=== PATIENT | female | born 1940 | race Caucasian/White ===

== ENCOUNTER 2017-06-02 08:29 | Emergency (ER) | payer MEDICARE ==
[~2017-06-02] VITALS: Ht 152.4 cm; Wt 59.0 kg
[2017-06-02] MEDS ORDERED: NS IV 1000 ML 1,000 ML ONE (08:33)
[2017-06-02] MEDS ORDERED: NS IV 1000 ML 1,000 ML IV ONE (08:37)
--- OUTSIDE RECORDS SUMMARY | 2017-06-02 08:37 | XMS REPORT | Clinical Summary ---
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 Estefania Wade Mixed conductive and sensorineural hearing loss Medication List Medication Instructions Start Date Stop Date Generic Name NDC Status Provider Patient Instruction CO Q 10 CAPS 1 PO DAILY COENZYME Q10 CAPS 63720690499 Active Estefania Wade ASPIRIN 81 MG TAB 1 PO daily ASPIRIN 57158344776 Active Estefania Wade OMEPRAZOLE 20 MG CPDR 1 PO daily OMEPRAZOLE 13993562769 Active Estefania Wade PRAVASTATIN SODIUM 40 MG TABS 1 PO DAILY PRAVASTATIN SODIUM 14030765142 Active Estefania Wade HYDROCHLOROTHIAZIDE 12.5 MG CAPS 1 PO QD HYDROCHLOROTHIAZIDE 77749452667 Active Estefania Wade Vital Signs Date Name Value Unit Range Description blood pressure, diastolic - 8462-4 90 mm[Hg] BP pablo blood pressure, systolic - 8480-6 155 mm[Hg] BP sys height E&M - 8302-2 61 [in_us] Bdy height pulse rate E&M - 8867-4 90 /min Heart rate respiratory rate E&M - 9279-1 14 /min Resp rate temperature E&M 98.6 [degF] Body temperature weight E&M - 3141-9 140 [lb_av] Weight Measured Procedures Code Procedure Name Date Entry Date Standard Description CPT-G0439 Medicare Annual Wellness Visit 16:46:31 CDT
--- OUTSIDE RECORDS SUMMARY | 2017-06-02 08:37 | XMS REPORT ---
Author JEEVAN Boykin [facility] eClinicalWorks Address Unknown Phone Unavailable Care Team Providers Care Package Drier Name Role Phone JEEVAN MENCHACA CP Unavailable Allergies No Known Allergies Problems Problem Type Condition Code Onset Dates Condition Status Assessment Encounter for immunization Z23 Active Medications No Known Medications Procedures Procedure Coding System Code Date SINGLE IMMUNIZATION ADMIN CPT-4 59849 Dec 29, 2014 FLUARIX QUAD (3 & UP)-GSK-2014 CPT-4 99472 Dec 29, 2014 Results No Known Results Immunizations Vaccine Administration Date FLUARIX QUAD (3 & UP)-GSK-2014Dec 29, 2014 Summary Purpose eClinicalWorks Submission
--- OUTSIDE RECORDS SUMMARY | 2017-06-02 08:37 | XMS REPORT | Clinical Summary ---
Author Author User, [place] Organization Estefania Wade DO, FACP Address Unknown [...] CAPS 1 PO DAILY COENZYME Q10 CAPS 37377154224 Active Estefania Wade ASPIRIN 81 MG TAB 1 PO daily ASPIRIN 01157264426 Active Estefania Wade OMEPRAZOLE 20 MG CPDR 1 PO daily OMEPRAZOLE 46152746693 Active Estefania Wade PRAVASTATIN SODIUM 40 MG TABS 1 PO DAILY PRAVASTATIN SODIUM 27212436485 Active Estefania Wade HYDROCHLOROTHIAZIDE 12.5 MG CAPS 1 PO QD HYDROCHLOROTHIAZIDE 64498961412 Active Estefania Wade Vital Signs Date Name [...]
--- OUTSIDE RECORDS SUMMARY | 2017-06-02 08:37 | XMS REPORT | Clinical Summary ---
Author Author User, [place] Organization Estefania Wade DO, FACP Address Unknown [...] CAPS 1 PO DAILY COENZYME Q10 CAPS 49969638716 Active Estefania Wade ASPIRIN 81 MG TAB 1 PO daily ASPIRIN 99527378510 Active Estefania Wade OMEPRAZOLE 20 MG CPDR 1 PO daily OMEPRAZOLE 89738238599 Active Estefania Wade PRAVASTATIN SODIUM 40 MG TABS 1 PO DAILY PRAVASTATIN SODIUM 81820647388 Active Estefania Wade HYDROCHLOROTHIAZIDE 12.5 MG CAPS 1 PO QD HYDROCHLOROTHIAZIDE 77196251053 Active Estefania Wade Vital Signs Date Name [...]
[2017-06-02 08:49] LABS: BASOPHILS % (AUTO) 0 % (0-10); EOSINOPHILS % (AUTO) 0 % (0-10); HEMATOCRIT 42 % (35-52); LYMPHOCYTES # (AUTO) 2.8 X 10^3 (1.0-4.0); LYMPHOCYTES % (AUTO) 21 % (12-44); MEAN CORPUSCULAR HEMOGLOBIN 31 PG (25-34); MEAN CORPUSCULAR HGB CONC 36 G/DL (32-36); MEAN CORPUSCULAR VOLUME 86 FL (80-99); MEAN PLATELET VOLUME 9.1 FL (7.4-10.4); MONOCYTES # (AUTO) 1.9 X 10^3 (0.0-1.0); MONOCYTES % (AUTO) 14 % (0-12); NEUTROPHILS # (AUTO) 8.7 X 10^3 (1.8-7.8); NEUTROPHILS % (AUTO) 65 % (42-75); PLATELET COUNT 510 10^3/uL (130-400); RED BLOOD COUNT 4.86 10^6/uL (4.35-5.85); WHITE BLOOD COUNT 13.4 10^3/uL (4.3-11.0)
[2017-06-02 09:12] LABS: ALANINE AMINOTRANSFERASE 16 U/L (0-55); ALBUMIN 4.7 GM/DL (3.2-4.5); ALKALINE PHOSPHATASE 112 U/L (40-136); BILIRUBIN,TOTAL 0.7 MG/DL (0.1-1.0); BUN/CREATININE RATIO 9; CALCIUM 10.5 MG/DL (8.5-10.1); CARBON DIOXIDE 27 MMOL/L (21-32); CHLORIDE 96 MMOL/L (98-107); CREATININE SERUM 0.82 MG/DL (0.60-1.30); GFR ESTIMATED > 60; GLUCOSE 121 MG/DL (70-105); MAGNESIUM 2.3 MG/DL (1.8-2.4); POTASSIUM 3.5 MMOL/L (3.6-5.0); SODIUM 134 MMOL/L (135-145)
--- NOTE | 2017-06-02 09:17 | Diagnostic Imaging Report ---
INDICATION: Tachycardia. COMPARISON: None available. FINDINGS: Lungs are clear. No pleural effusion or pneumothorax. Heart is normal in size. Moderate-sized hiatus hernia. Mineralized bodies in the subcoracoid space are likely due to degenerative changes in the glenohumeral joint. IMPRESSION: 1. No acute cardiopulmonary process. 2. Moderate-sized hiatus hernia. Dictated by: Dictated on workstation # [id number]
[2017-06-02] MEDS ORDERED: PRD10T (09:32)
[2017-06-02] MEDS ORDERED: LOSA50TA36 PO (09:32)
[2017-06-02] MEDS ORDERED: HYDR12.5 PO (09:32)
[2017-06-02] MEDS ORDERED: PRAV40TA2 PO (09:32)
[2017-06-02] MEDS ORDERED: CLAR-19 (09:32)
--- NOTE | 2017-06-02 09:32 | ED General ---
General Chief Complaint: Cardiac/General Problems Stated Complaint: CONGESTION,BP ISSUES,HEART RACING,CARR Nursing Triage Note: PT AMBULATED TO RM 7 W/O DIFFICULTIES. PT COMPLAINS OF RACING HEART AND JUST "NOT FEELING WELL". PT SYMPTOMS BEGAN ON OR BEFORE 05/28/17 WHEN SHE WENT TO THE DR AND WAS PRESCRIBED CLARITHROMYCIN 500 MG 1 EVERY 12 HRS AND PREDNISONE 10MG 1 TWICE A DAY. Nursing Sepsis Screen: No Definite Risk Source of Information: Patient Exam Limitations: No Limitations History of Present Illness Date Seen by Provider: Jun 02, 2017 Time Seen by Provider: 08:32 Initial Comments This pleasant 76-year-old woman presents to the emergency room with complaints of feeling ill for about 2 weeks. She had difficulty sleeping last night because of pounding head and pounding heart. She has been experiencing head congestion. She saw Dr. Mota last and was started on clarithromycin and prednisone but symptoms worsened despite treatment. She is afebrile at present but noted to have significant sinus tachycardia on the monitor. She has had no significant cough and denies chest pain. She does have a "fullness" in her chest. Allergies and Home Medications Allergies Coded Allergies: Penicillins (Verified Allergy, Severe, RASH, 06/02/17) Patient Home Medication List Home Medication List Reviewed: Yes Review of Systems Constitutional: malaise EENTM: see HPI Respiratory: see HPI Cardiovascular: see HPI Gastrointestinal: no symptoms reported Genitourinary: no symptoms reported Musculoskeletal: no symptoms reported Skin: no symptoms reported Psychiatric/Neurological: See HPI Hematologic/Lymphatic: No Symptoms Reported Immunological/Allergic: no symptoms reported Past Aodpwrf-Xbrnqv-Nwvirv Hx Patient Social History Recent Foreign Travel: No Contact w/Someone Who Travel: No Recent Infectious Disease Expo: No Past Medical History Surgeries: Yes Abdominal (bowel obstruction) Respiratory: No Cardiac: Yes High Cholesterol, Hypertension Neurological: No : No Genitourinary: No Gastrointestinal: Yes (history of bowel obstruction) Musculoskeletal: No Endocrine: No HEENT: Yes Hearing Impairment: Hard of Hearing, Hearing Aide Right, Hearing Aide Left Cancer: No Psychosocial: No Physical Exam Vital Signs Vital Signs - First Documented 06/02/17 08:30 Temp 98.5 Pulse 155 Resp 14 B/P (MAP) 190/96 (127) O2 Delivery Room Air Capillary Refill : Less Than 3 Seconds General Appearance: No Apparent Distress, Thin HEENT: PERRL/EOMI, Normal ENT Inspection, Pharynx Normal Neck: Normal Inspection Respiratory: Lungs Clear, Normal Breath Sounds, No Accessory Muscle Use, No Respiratory Distress Cardiovascular: No Edema, No Murmur, Tachycardia Gastrointestinal: Normal Bowel Sounds, Non Tender, Soft Extremity: Normal Inspection, No Pedal Edema Neurologic/Psychiatric: Alert, Oriented x3, No Motor/Sensory Deficits, Normal 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, 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 Norm as Tested Skin: Normal Color, Warm/Dry Progress/Results/Core Measures Suspected Sepsis Recent Fever Within 48 Hours: No Infection Criteria Present: None New/Unexplained Altered Menta: No Sepsis Screen: No Definite Risk Sepsis Diagnosis: SIRS Temperature:98.5 Pulse: 155 Respiratory Rate: 14 Laboratory Tests 06/02/17 08:35: White Blood Count 13.4H Blood Pressure 190 /96 Mean: 127 Laboratory Tests 06/02/17 08:35: Creatinine 0.82, Platelet Count 510H, Total Bilirubin 0.7 Results/Orders Lab Results Laboratory Tests Test 06/02/17 08:35 Range/Units White Blood Count 13.4 H 4.3-11.0 10^3/uL Red Blood Count 4.86 4.35-5.85 10^6/uL Hemoglobin 15.0 11.5-16.0 G/DL Hematocrit 42 35-52 % Mean Corpuscular Volume 86 80-99 FL Mean Corpuscular Hemoglobin 31 25-34 PG Mean Corpuscular Hemoglobin Concent 36 32-36 G/DL Red Cell Distribution Width 13.0 10.0-14.5 % Platelet Count 510 H 130-400 10^3/uL Mean Platelet Volume 9.1 7.4-10.4 FL Neutrophils (%) (Auto) 65 42-75 % Lymphocytes (%) (Auto) 21 12-44 % Monocytes (%) (Auto) 14 H 0-12 % Eosinophils (%) (Auto) 0 0-10 % Basophils (%) (Auto) 0 0-10 % Neutrophils # (Auto) 8.7 H 1.8-7.8 X 10^3 Lymphocytes # (Auto) 2.8 1.0-4.0 X 10^3 Monocytes # (Auto) 1.9 H 0.0-1.0 X 10^3 Eosinophils # (Auto) 0.0 0.0-0.3 10^3/uL Basophils # (Auto) 0.0 0.0-0.1 10^3/uL Sodium Level 134 L 135-145 MMOL/L Potassium Level 3.5 L 3.6-5.0 MMOL/L Chloride Level 96 L 98-107 MMOL/L Carbon Dioxide Level 27 21-32 MMOL/L Anion Gap 11 5-14 MMOL/L Blood Urea Nitrogen 7 7-18 MG/DL Creatinine 0.82 0.60-1.30 MG/DL Estimat Glomerular Filtration Rate > 60 BUN/Creatinine Ratio 9 Glucose Level 121 H 70-105 MG/DL Calcium Level 10.5 H 8.5-10.1 MG/DL Magnesium Level 2.3 1.8-2.4 MG/DL Total Bilirubin 0.7 0.1-1.0 MG/DL Aspartate Amino Transf (AST/SGOT) 16 5-34 U/L Alanine Aminotransferase (ALT/SGPT) 16 0-55 U/L Alkaline Phosphatase 112 40-136 U/L Troponin I < 0.30 <0.30 NG/ML C-Reactive Protein High Sensitivity 0.13 0.00-0.50 MG/DL B-Type Natriuretic Peptide 45.2 <100.0 PG/ML Total Protein 8.0 6.4-8.2 GM/DL Albumin 4.7 H 3.2-4.5 GM/DL Micro Results Microbiology 06/02/17 Influenza Types A,B Antigen (RATNA) - Final, Complete My Orders Orders - AMADOR DE OLIVEIRA MD Ns Iv 1000 Ml (Sodium Chloride 0.9%) (06/02/17 08:33) BNP (06/02/17 08:37) Cbc With Automated Diff (06/02/17 08:37) Comprehensive Metabolic Panel (06/02/17 08:37) Hs C Reactive Protein (06/02/17 08:37) Magnesium (06/02/17 08:37) Troponin I (06/02/17 08:37) Ua Culture If Indicated (06/02/17 08:37) Ekg Tracing (06/02/17 08:37) Monitor-Rhythm Ecg Trace Only (06/02/17 08:37) Chest Pa/Lat (2 View) (06/02/17 08:37) Saline Lock/Iv-Start (06/02/17 08:37) Saline Lock/Iv-Start (06/02/17 08:37) Ns Iv 1000 Ml (Sodium Chloride 0.9%) (06/02/17 08:37) Influenza A And B Antigens (06/02/17 08:45) Medications Given in ED Current Medications Medications Dose Ordered Sig/Mendel Route Start Time Stop Time Status Last Admin Dose Admin Sodium Chloride 1,000 ml @ 0 mls/hr Q0M ONCE IV 06/02/17 08:37 06/02/17 08:40 DC 06/02/17 08:40 1,000 MLS/HR Vital Signs/I&O 06/02/17 08:30 Temp 98.5 Pulse 155 Resp 14 B/P (MAP) 190/96 (127) O2 Delivery Room Air Capillary Refill : Less Than 3 Seconds Blood Pressure Mean: 127 Progress Note : Progress Note Patient was treated with IV fluids and heart rate dropped by about 30 bpm. This also improved her pounding head and heart. Workup was relatively unremarkable with the exception of positive influenza B screen. Patient is too far into her illness to benefit from Tamiflu. Patient was advised to increase her oral fluid intake and to take Tylenol and/or ibuprofen. She was also advised to follow-up with Dr. Mota regarding her EKG. ECG Initial ECG Impression Date: Jun 02, 2017 Initial ECG Impression Time: 08:33 Initial ECG Rate: 111 Initial ECG Rhythm: S.Tach Comment Sinus tachycardia with intraventricular conduction delay, probable right bundle branch block. No ST elevation or depression. No axis deviation. Diagnostic Imaging Diagonstic Imaging: Xray Plain Films/CT/US/NM/MRI: chest Comments Chest x-ray viewed by me and report reviewed. See report below: NAME: DEREK ACOSTA [facility] REC#: [id number] PT STATUS: REG ER : 1940 PHYSICIAN: AMADOR DE OLIVEIRA MD ADMIT DATE: 06/02/17/ER Signed Date of Exam: 06/02/17 CHEST PA/LAT (2 VIEW) INDICATION: Tachycardia. COMPARISON: None available. FINDINGS: Lungs are clear. No pleural effusion or pneumothorax. Heart is normal in size. Moderate-sized hiatus hernia. Mineralized bodies in the subcoracoid space are likely due to degenerative changes in the glenohumeral joint. IMPRESSION: 1. No acute cardiopulmonary process. 2. Moderate-sized hiatus hernia. Dictated by: Dictated on workstation # [id number] Dict: 06/02/17913 Trans: 06/02/17933 Interpreted by: CHARLIE SYED MD Electronically signed by: CHARLIE SYED MD 06/02/17933 Departure Impression Primary Impression: Influenza B Additional Impressions: Hypovolemia Sinus tachycardia Abnormal EKG Disposition: HOME, SELF-CARE Condition: Improved Departure-Patient Inst. Decision time for Depature: 09:20 Referrals: CORINA MOTA DO (PCP/Family) Primary Care Physician Patient Instructions: Flu Add. Discharge Instructions: Drink plenty of clear liquids, especially water. You may take Tylenol (acetaminophen) up to 650 mg every 6 hours as needed for fever, headache, or pain. Add ibuprofen up to 400 mg every 6 hours as needed for fever, headache, or pain not controlled by Tylenol. Return to care if symptoms are worsening or if you develop new symptoms such as difficulty breathing, vomiting, etc. You may complete your antibiotics and prednisone as prescribed. All discharge instructions reviewed with patient and/or family. Voiced understanding. Copy Copies To 1: CORINA OMTA JOSHUA T MD Jun 02, 2017 09:32
[2017-06-02 09:43] VITALS: BP 147/84
[2017-06-05] MEDS ORDERED: LEVO750T9 PO (10:41)
[2017-06-05] MEDS ORDERED: METO-370 PO (10:41)
== END 2017-06-02 09:46 | disposition home or self-care (01) ==
LOC: ER 08:32
DX: J10.1 Influenza due to other identified influenza virus with other respiratory manifestations (principal); E86.1 Hypovolemia; R00.0 Tachycardia, unspecified; R94.31 Abnormal electrocardiogram [ECG] [EKG]; E78.00 Pure hypercholesterolemia, unspecified; I10 Essential (primary) hypertension; Z87.19 Personal history of other diseases of the digestive system; Z88.0 Allergy status to penicillin
CPT/HCPCS: 36415; 71046; 80053; 83735; 83880; 84484; 85025; 86141; 87804; 93005; 93041; 96360

== ENCOUNTER 2017-06-04 15:49 | Observation (INO) | payer MEDICARE ==
[~2017-06-04] VITALS: Ht 152.4 cm; Wt 59.0 kg
[2017-06-04 15:49] VITALS: BP 168/94
[~2017-06-04 15:49] MED LIST: CLAR-19; HYDR12.5 PO; LOSA50TA36 PO; PRAV40TA2 PO; PRD10T
[2017-06-04] MEDS ORDERED: ACETAMINOPHEN 500 MG TAB (TYLENOL) PO PRN (16:30)
[2017-06-04] MEDS ORDERED: IBUPROFEN TABLET 200 MG TAB PO PRN (16:30)
[2017-06-04] MEDS ORDERED: fentaNYL INJECTION 100 MCG/2 ML AMP IVP PRN (16:30)
[2017-06-04] MEDS ORDERED: ALPRAZolam 0.25 MG (XANAX) TAB PO PRN (16:30)
[2017-06-04] MEDS ORDERED: ENOXAPARIN 40 MG/0.4 ML (LOVENOX) SYR SC SCH (16:30)
[2017-06-04] MEDS ORDERED: ONDANSETRON 4 MG/2 ML (SDV) Z0FRAN IVP PRN (16:30)
[2017-06-04] MEDS ORDERED: CATHETER FLUSH 10 ML SYR IV PRN (16:45)
[2017-06-04 16:57] LABS: BASOPHILS % (AUTO) 0 % (0-10); EOSINOPHILS % (AUTO) 0 % (0-10); HEMATOCRIT 39 % (35-52); HEMOGLOBIN 13.6 G/DL (11.5-16.0); LYMPHOCYTES # (AUTO) 1.1 X 10^3 (1.0-4.0); LYMPHOCYTES % (AUTO) 16 % (12-44); MEAN CORPUSCULAR HEMOGLOBIN 31 PG (25-34); MEAN CORPUSCULAR HGB CONC 35 G/DL (32-36); MEAN CORPUSCULAR VOLUME 87 FL (80-99); MEAN PLATELET VOLUME 8.8 FL (7.4-10.4); MONOCYTES # (AUTO) 0.8 X 10^3 (0.0-1.0); MONOCYTES % (AUTO) 11 % (0-12); NEUTROPHILS # (AUTO) 5.2 X 10^3 (1.8-7.8); NEUTROPHILS % (AUTO) 73 % (42-75); PLATELET COUNT 377 10^3/uL (130-400); RED BLOOD COUNT 4.44 10^6/uL (4.35-5.85); RED CELL DISTRIBUTION WIDTH 13.4 % (10.0-14.5); WHITE BLOOD COUNT 7.1 10^3/uL (4.3-11.0)
[2017-06-04] MEDS ORDERED: LEVOFLOXACIN 750 MG/150 ML IV 150 ML IV SCH (17:00)
[2017-06-04 17:11] LABS: BILIRUBIN,URINE NEGATIVE (NEGATIVE); CLARITY,URINE CLEAR; COLOR,URINE YELLOW; GLUCOSE, URINE (UA) NEGATIVE (NEGATIVE); KETONES,URINE NEGATIVE (NEGATIVE); LEUKOCYTE ESTERASE ,URINE NEGATIVE (NEGATIVE); NITRITE,URINE NEGATIVE (NEGATIVE); PH,URINE 7 (5-9); PROTEIN,URINE NEGATIVE (NEGATIVE); UROBILINOGEN,URINE NORMAL (NORMAL)
[2017-06-04 17:15] LABS: ALANINE AMINOTRANSFERASE 13 U/L (0-55); ALKALINE PHOSPHATASE 90 U/L (40-136); BILIRUBIN,TOTAL 0.5 MG/DL (0.1-1.0); BUN/CREATININE RATIO 11; CALCIUM 9.3 MG/DL (8.5-10.1); CARBON DIOXIDE 24 MMOL/L (21-32); CHLORIDE 96 MMOL/L (98-107); GFR ESTIMATED > 60; GLUCOSE 100 MG/DL (70-105); POTASSIUM 3.3 MMOL/L (3.6-5.0); SODIUM 132 MMOL/L (135-145); TOTAL PROTEIN 6.6 GM/DL (6.4-8.2)
[2017-06-04] MEDS ORDERED: RT-ALBUTEROL/IPRATROPIUM 3 ML (DUONEB) VIAL INH PRN (17:15)
[2017-06-04 17:18] LABS: BACTERIA,URINE TRACE /HPF; RBC,URINE RARE /HPF; WBC,URINE RARE /HPF
--- NOTE | 2017-06-04 17:23 | Diagnostic Imaging Report ---
INDICATION: Influenza. Tachycardia. FINDINGS: Two views of the chest show normal heart size and vascularity. The lungs are clear. There is no effusion or pneumothorax. There is a hiatal hernia. There is no acute bony abnormality. IMPRESSION: Hiatal hernia. Chest is similar to a prior study from 06/02/2017. Dictated by: Dictated on workstation # [id number]
[2017-06-04] MEDS: NS IV 1000 ML 1,000 ML IV SCH (17:27)
[2017-06-04 17:28] LABS: ABG BASE EXCESS 1.7 MMOL/L (-2.5-2.5); ABG OXYGEN SATURATION 96 % (94-100); ABG PCO2 34 MMHG (35-45); ABG PH 7.48 (7.37-7.43); ABG PO2 75 MMHG (79-93); ABG TCO2 26.1 MMOL/L (21.0-31.0)
[2017-06-04 17:29] LABS: ALLENS TEST YES-POS; INSPIRED O2 ROOM AIR; PATIENT TEMP 98.8; VENTILATOR NO
--- NOTE | 2017-06-04 18:03 | Consultation-Cardiology ---
HPI-Cardiology Cardiology Consultation: Date of Consultation 06/04/17 Time Seen by Provider: 17:50 Date of Admission Attending Physician Estefania Wade DO Admitting Physician Estefania Wade DO Consulting Physician DIANA JOHN MD, MA, FACP, FACC, FSCAI, CCDS HPI: Chief Complaint: Reason for consultation: Tachycardia 76 yo woman with several days of malaise and gen weakness and some shortness of breath. Has had a feeling of rapid heart beat especially when she lies down. Denies cp or syncope or leg swelling. Went to ER on 06/02/17; was diagnosed with Influenza and was told that she had some abnormality on ECG. Today she went to Dr Wade from where she was hospitalized because heart rate was elevated into the 130s Review of Systems-Cardiology Review of Systems Constitutional: As described under HPI Eyes: No photophobia, No vision change Ears/Nose/Throat: chronic hearing loss; No ear discharge, No nasal drainage, No recent hearing loss Respiratory: As described under HPI Cardiovascular: As described under HPI Gastrointestinal: No constipation, No diarrhea, No nausea, No vomiting Genitourinary: No dysuria, No hematuria, No urine frequency changes Musculoskeletal: back pain (chronic) Skin: No rash, No ulcerations Psychiatric/Neurological: No seizure, No focal weakness Hematologic: No bleeding abnormalities UFU-Nrghjd-Ixzrzj Hx Patient Social History Alcohol Use: Occasionally Uses Recreational Drug Use: No Smoking Status: Never a Smoker 2nd Hand Smoke Exposure: No Recent Foreign Travel: No Recent Infectious Disease Expo: No Physical Abuse Screen: No Sexual Abuse: No Immunizations Up To Date Date of Pneumonia Vaccine: May 24, 2016 Past Medical History PMH As described under Assessment. Family Medical History Family Medical History: Does not report fam h/o early CAD or SCD Allergies and Home Medications Allergies Coded Allergies: Penicillins (Verified Allergy, Severe, RASH, 06/02/17) Patient Home Medication List Home Medication List Reviewed: Yes Physical Exam-Cardiology Physical Exam Vital Signs/I&O 06/04/17 06/04/17 06/04/17 06/04/17 15:49 16:00 17:06 17:11 Temp 99.8 Pulse 114 111 Resp 18 B/P (MAP) 168/94 (118) Pulse Ox 98 96 96 O2 Delivery Room Air Room Air Room Air FiO2 21 Capillary Refill : Constitutional: AAO x 3, well-developed, well-nourished HEENT: PERRL, EOMI, hard of hearing Neck: No carotid bruit; carotid pulses are 2 + bilaterally, with good upstrokes Respiratory: No accessory muscle use; other (good bilat air entry, somewhat diminished at the bases) Cardiovascular: regular rate-rhythm, S1 and S2, systolic murmur (soft ELIANA at card base) Gastrointestinal: No tender; soft; No guarding, No rebound; audible bowel sounds Extremities: No clubbing, No cyanosis, No significant edema Neurologic/Psychiatric: oriented x 3, grossly intact, power is 5/5 both on sides Skin: No rash on exposed areas, No ulcerations on exposed areas Data Review Labs Laboratory Tests 06/04/17 16:40: White Blood Count 7.1, Red Blood Count 4.44, Hemoglobin 13.6, Hematocrit 39, Mean Corpuscular Volume 87, Mean Corpuscular Hemoglobin 31, Mean Corpuscular Hemoglobin Concent 35, Red Cell Distribution Width 13.4, Platelet Count 377, Mean Platelet Volume 8.8, Neutrophils (%) (Auto) 73, Lymphocytes (%) (Auto) 16, Monocytes (%) (Auto) 11, Eosinophils (%) (Auto) 0, Basophils (%) (Auto) 0, Neutrophils # (Auto) 5.2, Lymphocytes # (Auto) 1.1, Monocytes # (Auto) 0.8, Eosinophils # (Auto) 0.0, Basophils # (Auto) 0.0, Sodium Level 132L, Potassium Level 3.3L, Chloride Level 96L, Carbon Dioxide Level 24, Anion Gap 12, Blood Urea Nitrogen 8, Creatinine 0.70, Estimat Glomerular Filtration Rate > 60, BUN/ Creatinine Ratio 11, Glucose Level 100, Lactic Acid Level 1.47, Calcium Level 9.3, Total Bilirubin 0.5, Aspartate Amino Transf (AST/SGOT) 15, Alanine Aminotransferase (ALT/SGPT) 13, Alkaline Phosphatase 90, Troponin I < 0.30, B- Type Natriuretic Peptide 18.8, Total Protein 6.6, Albumin 4.0 06/04/17 17:05: Urine Color YELLOW, Urine Clarity CLEAR, Urine pH 7, Urine Specific [place] 1.005L, Urine Protein NEGATIVE, Urine Glucose (UA) NEGATIVE, Urine Ketones NEGATIVE, Urine Nitrite NEGATIVE, Urine Bilirubin NEGATIVE, Urine Urobilinogen NORMAL, Urine Leukocyte Esterase NEGATIVE, Urine RBC (Auto) 1+H, Urine RBC RARE , Urine WBC RARE, Urine Crystals NONE, Urine Bacteria TRACE, Urine Casts NONE, Urine Mucus NEGATIVE, Urine Culture Indicated NO 06/04/17 17:15: Blood Gas Puncture Site LT RAD, Blood Gas Patient Temperature 98.8, Arterial Blood pH 7.48H, Arterial Blood Partial Pressure CO2 34L, Arterial Blood Partial Pressure O2 75L, Arterial Blood HCO3 25, Arterial Blood Total CO2 26.1, Arterial Blood Oxygen Saturation 96, Arterial Blood Base Excess 1.7, Wilmer Test YES-POS, Blood Gas Ventilator Setting NO, Blood Gas Inspired Oxygen ROOM AIR Laboratory Tests 06/04/17 16:40 ECG Impression ECG Comment ECG on 06/04/17: NSR with RBBB A/P-Cardiology Assessment/Admission Diagnosis Sinus tach, likely related to systemic illness 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, probably chronic Influenza, managed by Dr Wade Hardness of hearing Hypertension, by history Elec abn due to chronic diuretic use Probable dehydration Discussion and Recomendations * D/c HCTZ * iv fluids * Replenish K * Monitor labs * Treat hypertension with beta-maximo * Echo to eval for structural heart disease * I discussed her case with Dr Wade on the phone earlier today * I answered the questions from the patient and her family Clinical Quality Measures DVT/VTE Risk/Contraindication: Risk Factor Score Per Nursin RFS Level Per Nursing on Admit: 3=High DIANA JOHN MD FACP FAC CCDS Jun 04, 2017 18:03
[2017-06-04] MEDS ORDERED: KCL 20 MEQ TAB (K-DUR) PO NR (18:15)
[2017-06-04 20:36] VITALS: BP 116/67
[2017-06-05] VITALS: BP 121/76
[2017-06-05] MEDS: NS IV 1000 ML 1,000 ML IV SCH (01:32)
[2017-06-05 03:51] LABS: BASOPHILS % (AUTO) 0 % (0-10); EOSINOPHILS % (AUTO) 0 % (0-10); HEMATOCRIT 38 % (35-52); LYMPHOCYTES # (AUTO) 1.4 X 10^3 (1.0-4.0); LYMPHOCYTES % (AUTO) 27 % (12-44); MEAN CORPUSCULAR HEMOGLOBIN 30 PG (25-34); MEAN CORPUSCULAR HGB CONC 35 G/DL (32-36); MEAN CORPUSCULAR VOLUME 88 FL (80-99); MEAN PLATELET VOLUME 8.9 FL (7.4-10.4); MONOCYTES # (AUTO) 0.7 X 10^3 (0.0-1.0); MONOCYTES % (AUTO) 12 % (0-12); NEUTROPHILS # (AUTO) 3.3 X 10^3 (1.8-7.8); NEUTROPHILS % (AUTO) 61 % (42-75); PLATELET COUNT 339 10^3/uL (130-400); RED BLOOD COUNT 4.28 10^6/uL (4.35-5.85); RED CELL DISTRIBUTION WIDTH 13.4 % (10.0-14.5); WHITE BLOOD COUNT 5.4 10^3/uL (4.3-11.0)
[2017-06-05 04:00] VITALS: BP 141/81
[2017-06-05 04:15] LABS: ALANINE AMINOTRANSFERASE 9 U/L (0-55); ALBUMIN 3.5 GM/DL (3.2-4.5); ALKALINE PHOSPHATASE 85 U/L (40-136); BILIRUBIN,TOTAL 0.6 MG/DL (0.1-1.0); BUN/CREATININE RATIO 9; CALCIUM 8.7 MG/DL (8.5-10.1); CARBON DIOXIDE 23 MMOL/L (21-32); CHLORIDE 106 MMOL/L (98-107); GFR ESTIMATED > 60; GLUCOSE 98 MG/DL (70-105); MAGNESIUM 2.1 MG/DL (1.8-2.4); POTASSIUM 3.9 MMOL/L (3.6-5.0); SODIUM 137 MMOL/L (135-145); TOTAL PROTEIN 5.8 GM/DL (6.4-8.2)
[2017-06-05 08:24] VITALS: BP 145/81
[2017-06-05] MEDS ORDERED: ASPI-983 PO (08:43)
[2017-06-05] MEDS ORDERED: ACET-2267 PO (08:43)
[2017-06-05] MEDS ORDERED: OMEP20TA7 PO (08:43)
[2017-06-05] MEDS ORDERED: UBID1CAP59 PO (08:43)
[2017-06-05] MEDS ORDERED: ASPIRIN 81 MG CHEW (CHILDREN'S ASA) PO ONE (10:00)
--- NOTE | 2017-06-05 10:17 | Progress Note-Cardiology ---
Cardiology SOAP Progress Note Subjective: No cp or palp or syncope or shortness of breath Objective: I&O/Vital Signs 06/05/17 06/05/17 06/05/17 06/05/17 00:00 00:00 01:00 04:00 Temp 98.8 99.0 Pulse 74 80 76 Resp 16 18 B/P (MAP) 121/76 (91) 141/81 (101) Pulse Ox 93 94 96 O2 Delivery Room Air Room Air Room Air 06/05/17 06/05/17 06/05/17 06/05/17 04:00 06:54 07:00 08:24 Temp 98.4 Pulse 75 84 Resp 22 B/P (MAP) 145/81 (102) Pulse Ox 95 96 97 O2 Delivery Room Air Room Air Room Air 06/05/17 06/05/17 08:24 08:24 Pulse Ox 95 93 O2 Delivery Room Air Room Air 06/05/17 00:00 Intake Total 200 ml Output Total 600 ml Balance -400 ml Weight (Pounds): 130 Weight (Ounces): 3.0 Weight (Calculated Kilograms): 58.598501 Constitutional: AAO x 3, well-developed, well-nourished Respiratory: No accessory muscle use; other (good bilat air entry, somewhat diminished at the bases) Cardiovascular: regular rate-rhythm, S1 and S2, systolic murmur (soft ELIANA at card base) Gastrointestional: No tender; soft; No guarding, No rebound; audible bowel sounds Extremities: No clubbing, No cyanosis, No significant edema Neurologic/Psychiatric: oriented x 3, grossly intact, power is 5/5 both on sides Skin: No rash on exposed areas, No ulcerations on exposed areas Results/Procedures: Labs Laboratory Tests 06/04/17 16:40: White Blood Count 7.1, Red Blood Count 4.44, Hemoglobin 13.6, Hematocrit 39, Mean Corpuscular Volume 87, Mean Corpuscular Hemoglobin 31, Mean Corpuscular Hemoglobin Concent 35, Red Cell Distribution Width 13.4, Platelet Count 377, Mean Platelet Volume 8.8, Neutrophils (%) (Auto) 73, Lymphocytes (%) (Auto) 16, Monocytes (%) (Auto) 11, Eosinophils (%) (Auto) 0, Basophils (%) (Auto) 0, Neutrophils # (Auto) 5.2, Lymphocytes # (Auto) 1.1, Monocytes # (Auto) 0.8, Eosinophils # (Auto) 0.0, Basophils # (Auto) 0.0, Sodium Level 132L, Potassium Level 3.3L, Chloride Level 96L, Carbon Dioxide Level 24, Anion Gap 12, Blood Urea Nitrogen 8, Creatinine 0.70, Estimat Glomerular Filtration Rate > 60, BUN/ Creatinine Ratio 11, Glucose Level 100, Lactic Acid Level 1.47, Calcium Level 9.3, Total Bilirubin 0.5, Aspartate Amino Transf (AST/SGOT) 15, Alanine Aminotransferase (ALT/SGPT) 13, Alkaline Phosphatase 90, Troponin I < 0.30, B- Type Natriuretic Peptide 18.8, Total Protein 6.6, Albumin 4.0 06/04/17 17:05: Urine Color YELLOW, Urine Clarity CLEAR, Urine pH 7, Urine Specific [place] 1.005L, Urine Protein NEGATIVE, Urine Glucose (UA) NEGATIVE, Urine Ketones NEGATIVE, Urine Nitrite NEGATIVE, Urine Bilirubin NEGATIVE, Urine Urobilinogen NORMAL, Urine Leukocyte Esterase NEGATIVE, Urine RBC (Auto) 1+H, Urine RBC RARE , Urine WBC RARE, Urine Crystals NONE, Urine Bacteria TRACE, Urine Casts NONE, Urine Mucus NEGATIVE, Urine Culture Indicated NO 06/04/17 17:15: Blood Gas Puncture Site LT RAD, Blood Gas Patient Temperature 98.8, Arterial Blood pH 7.48H, Arterial Blood Partial Pressure CO2 34L, Arterial Blood Partial Pressure O2 75L, Arterial Blood HCO3 25, Arterial Blood Total CO2 26.1, Arterial Blood Oxygen Saturation 96, Arterial Blood Base Excess 1.7, Wilmer Test YES-POS, Blood Gas Ventilator Setting NO, Blood Gas Inspired Oxygen ROOM AIR 06/05/17 03:40: White Blood Count 5.4, Red Blood Count 4.28L, Hemoglobin 13.0, Hematocrit 38, Mean Corpuscular Volume 88, Mean Corpuscular Hemoglobin 30, Mean Corpuscular Hemoglobin Concent 35, Red Cell Distribution Width 13.4, Platelet Count 339, Mean Platelet Volume 8.9, Neutrophils (%) (Auto) 61, Lymphocytes (%) (Auto) 27, Monocytes (%) (Auto) 12, Eosinophils (%) (Auto) 0, Basophils (%) (Auto) 0, Neutrophils # (Auto) 3.3, Lymphocytes # (Auto) 1.4, Monocytes # (Auto) 0.7, Eosinophils # (Auto) 0.0, Basophils # (Auto) 0.0, Sodium Level 137, Potassium Level 3.9, Chloride Level 106, Carbon Dioxide Level 23, Anion Gap 8, Blood Urea Nitrogen 6L, Creatinine 0.70, Estimat Glomerular Filtration Rate > 60, BUN/ Creatinine Ratio 9, Glucose Level 98, Calcium Level 8.7, Total Bilirubin 0.6, Aspartate Amino Transf (AST/SGOT) 12, Alanine Aminotransferase (ALT/SGPT) 9, Alkaline Phosphatase 85, Total Protein 5.8L, Albumin 3.5, Magnesium Level 2.1, Thyroid Stimulating Hormone (TSH) 1.72 Laboratory Tests 06/04/17 16:40 06/05/17 03:40 A/P: Assessment: Sinus tach, likely related to systemic illness (recently diagnosed Influenza, managed by Dr Wade) 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 I spoke with her and answered CV-related questions * D/c HCTZ * Treat hypertension with beta-maximo * Outpatient f/u advised DIANA JOHN MD FACP [facility] CCDS Jun 05, 2017 10:17
--- NOTE | 2017-06-05 10:38 | Short Stay Summary-Hospitalist ---
History of Present Illness HPI/Chief Complaint CC: Tachycardia and cough HPI: This is a 76-year-old white female clinic patient of mine that was recently seen in the ER [facility] with influenza that became worse so she presented to my office yesterday as an urgent appointment with heart rate of 134 and blood pressure 150/80 which is unusual for her. She reported that she was not able to eat or drink much and has lost her appetite and had a sore throat and a cough. Considering the failure of outpatient influenza treatment that no longer met criteria for Tamiflu since it was a diagnosis made after 5 days of symptoms she was admitted for observation placed in cardiac stepdown and cardiology was consulted for tachycardia. Patient overall felt much better after IV fluids and patient was empirically placed on Levaquin although chest x- ray did not show an infiltrate there were crackles on exam high risk for pneumonia after influenza. Overall patient felt well enough to be discharged and she will close follow-up with me on Thursday. Source: patient Exam Limitations: no limitations Date Seen 06/05/17 Time Seen by Provider: 10:00 Attending Physician Estefania Wade DO PCP Estefania Wade DO Referring Physician Date of Admission Jun 04, 2017 at 15:53 Home Medications & Allergies Home Medications Reviewed patient Home Medication Reconciliation performed by pharmacy medication reconciliations avionics electronics technician and/or nursing. Patients Allergies have been reviewed. Allergies Allergies Coded Allergies Penicillins (Verified Allergy, Severe, RASH, 06/02/17) Past Egpaebf-Ghdrzu-Nezrfh Hx Past Med/Social Hx: Reviewed Nursing Past Med/Soc Hx, Reviewed and Corrections made Patient Social History Marrital Status: single Employed/Student: retired Alcohol Use: Occasionally Uses Recreational Drug Use: No Smoking Status: Never a Smoker 2nd Hand Smoke Exposure: No Physical Abuse Screen: No Sexual Abuse: No Recent Foreign Travel: No Contact w/other who traveled: No Recent Hopitalizations: No Recent Infectious Disease Expo: No Immunizations Up To Date Date of Pneumonia Vaccine: May 24, 2016 Seasonal Allergies Seasonal Allergies: No Past Medical History Surgeries: Abdominal Cardiac: High Cholesterol, Hypertension Gastrointestinal: Obstructive Bowel, Chronic Constipation Hearing Impairment: Hard of Hearing, Deaf History of Blood Disorders: No Adverse Reaction to Blood [place]: No Family History Hypertension Review of Systems Constitutional: see HPI, diaphoresis, dizziness, fever, malaise, weakness EENTM: throat pain Respiratory: cough Cardiovascular: palpitations Gastrointestinal: no symptoms reported Genitourinary: decreased output Musculoskeletal: back pain Skin: no symptoms reported Psychiatric/Neurological: Anxiety All Other Systems Reviewed Negative Unless Noted: Yes Physical Exam Physical Exam Vital Signs Vital Signs - First Documented 06/04/17 06/04/17 15:49 17:06 Temp 99.8 Pulse 114 Resp 18 B/P (MAP) 168/94 (118) Pulse Ox 98 O2 Delivery Room Air FiO2 21 Capillary Refill : General Appearance: No Apparent Distress, WD/WN, Chronically ill Eyes: Bilateral Eye Normal Inspection, Bilateral Eye PERRL HEENT: PERRL/EOMI, Normal ENT Inspection, Pharynx Normal Neck: Full Range of Motion, Normal Inspection, Non Tender, Supple, Carotid Bruit Respiratory: Chest Non Tender, Lungs Clear, No Accessory Muscle Use, No Respiratory Distress, Crackles Cardiovascular: Regular Rate, Rhythm, No Edema, No Gallop, No JVD, No Murmur, Normal Peripheral Pulses Gastrointestinal: Normal Bowel Sounds, No Organomegaly, No Pulsatile Mass, Non Tender, Soft Back: Normal Inspection, No CVA Tenderness, No Vertebral Tenderness Extremity: Normal Capillary Refill, Normal Inspection, Normal Range of Motion, Non Tender, No Calf Tenderness, No Pedal Edema Neurologic/Psychiatric: Alert, Oriented x3, No Motor/Sensory Deficits, Normal Mood/Affect Skin: Normal Color, Warm/Dry Lymphatic: No Adenopathy Results Results/Procedures Labs Laboratory Tests 06/04/17 16:40 06/05/17 03:40 Patient resulted labs reviewed. Short Stay Diagnosis Discharge Diagnosis-Short Stay Admission Diagnosis Tachycardia Crackles on exam high risk for pneumonia following influenza 2 days prior Dehydration Hypertension Hyperlipidemia Chronic deafness Final Discharge Diagnosis Tachycardia Crackles on exam high risk for pneumonia following influenza 2 days prior Dehydration Hypertension Hyperlipidemia Chronic deafness Conclusion Plan Plan: Discharge home See me on Thursday Levaquin empiric treatment for early bronchitis early pneumonia following influenza illness Metoprolol as cardiology recommends Clinical Quality Measures DVT/VTE Risk/Contraindication: Risk Factor Score Per Nursin RFS Level Per Nursing on Admit: 3=High ESTEFANIA WADE DO Jun 05, 2017 10:38
[2017-06-05] MEDS ORDERED: METO-370 PO (10:41)
[2017-06-05] MEDS ORDERED: LEVO750T9 PO (10:41)
[2017-06-05] MEDS ORDERED: ACETAMINOPHEN 500 MG TAB (TYLENOL) PO PRN (11:15)
[2017-06-05] MEDS ORDERED: SIMvastatin 20 MG (ZOCOR) TAB PO SCH (21:00)
[2017-06-05] MEDS ORDERED: VIT E PO SCH (21:00)
[2017-06-05] MEDS ORDERED: UBIDECARENONE PO SCH (21:00)
[2017-06-05] MEDS ORDERED: ASPIRIN E.C. 81 MG (ECOTRIN) TAB PO SCH (21:00)
[2017-06-05] MEDS ORDERED: [UNRECOGNIZED DRUG - OTHER] PO SCH (21:00)
[2017-06-05] MEDS ORDERED: VIT E MIX PO SCH (21:00)
[2017-06-06] MEDS ORDERED: PANTOPRAZOLE 20 MG TABLET (PROTONIX) PO SCH (07:00)
[2017-06-06] MEDS ORDERED: LOSARTAN 50 MG (COZAAR) TAB PO SCH (09:00)
[2017-06-06] MEDS ORDERED: HYDROCHLOROTHIAZIDE 12.5 MG (HCTZ) CAP PO SCH (09:00)
[2017-06-06] MEDS ORDERED: meTOproloL SUCCINATE 50 MG (TOPROL XL) TAB PO SCH (09:00)
[2017-06-06] MEDS ORDERED: ASPIRIN 81 MG CHEW (CHILDREN'S ASA) PO SCH (09:00)
== END 2017-06-05 10:41 | disposition home or self-care (01) ==
LOC: ICU 15:49 → UNDOADMOB 15:53 → ICU 15:53 → UNDODISOB 06-05 12:32
PROVIDERS: ADMIT Internal Medicine; ATTEND Internal Medicine
DX: R00.0 Tachycardia, unspecified (principal); E86.0 Dehydration; I11.9 Hypertensive heart disease without heart failure; E78.5 Hyperlipidemia, unspecified; H91.90 Unspecified hearing loss, unspecified ear; I45.10 Unspecified right bundle-branch block; E87.8 Other disorders of electrolyte and fluid balance, not elsewhere classified
CPT/HCPCS: 36415; 71046; 80053; 81000; 82805; 83605; 83735; 83880; 84443; 84484; 85025; 87040; 93005; 93306; 94760

== ENCOUNTER 2018-03-02 16:47 | Inpatient (IN) | payer MEDICARE ==
[~2018-03-02] VITALS: Ht 157.5 cm; Wt 59.0 kg
[~2018-03-02 16:47] MED LIST changes: +ACET-2267 PO; +ASPI-983 PO; +LEVO750T9 PO; -LOSA50TA36 PO; +LOSA50TA7 PO; +METO-370 PO; +OMEP20TA7 PO; +UBID1CAP59 PO
--- NOTE | 2018-03-02 17:56 | ED Abdominal Pain ---
General Chief Complaint: Abdominal/GI Problems Stated Complaint: PAIN IN ABD Nursing Triage Note: PT REPORTS GENERALIZED ABDOMINAL PAIN/CRAMPING STARTING TODAY. PT STATES SHE HAS HX OF BOWEL OBSTRUCTIONS. PT REPORTS CONSTIPATION. PT DENIES N/V/D. Sepsis Screen: No Definite Risk Source of Information: Patient Exam Limitations: No Limitations History of Present Illness Date Seen by Provider: Mar 02, 2018 Time Seen by Provider: 17:55 Initial Comments To ER per private vehicle from home with reports of abdominal cramping since earlier today. This reminds her of a bowel obstruction that she had a few years ago. She had a bowel obstruction treated surgically in [facility] 4 years ago. That is her only abdominal surgery. She has not passed any flatus today. She did have a bowel movement early this morning. She states it was small and hard. She states that she "never has a normal bowel movement" because she has to take laxatives to have a bowel movement. She denies any nausea or vomiting. Denies any fevers or chills. Timing/Duration: 12-24 Hours Severity/Quality: Moderate Location: Generalized Abdomen Radiation: No Radiation Activities at Onset: None Allergies and Home Medications Allergies Coded Allergies: Penicillins (Verified Allergy, Severe, RASH, 06/02/17) Home Medications Acetaminophen 500 Mg Tablet, 500 MG PO Q4H PRN for PAIN-MILD, (Reported) Aspirin 81 Mg Tablet.dr, 81 MG PO HS, (Reported) Levofloxacin 750 Mg Tablet, 750 MG PO DAILY Prescribed by: CORINA MOTA on 06/05/17 1041 Losartan Potassium 50 Mg Tablet, 50 MG PO DAILY, (Reported) Metoprolol Succinate 50 Mg Tab.er.24h, 50 MG PO DAILY Prescribed by: CORINA MOTA on 06/05/17 1041 Omeprazole 20 Mg Tablet.dr, 20 MG PO DAILY, (Reported) Pravastatin Sodium 40 Mg Tablet, 40 MG PO HS, (Reported) Ubidecarenone/Vit E/Vit E Mix 1 Each Capsule, 100 MG PO HS, (Reported) Patient Home Medication List Home Medication List Reviewed: Yes Review of Systems Review of Systems Constitutional: see HPI; No chills, No fever EENTM: No Symptoms Reported Respiratory: No Symptoms Reported Cardiovascular: No Symptoms Reported Gastrointestinal: See HPI, Abdominal Pain, Constipated; Denies Diarrhea, Denies Nausea Genitourinary: No Symptoms Reported Musculoskeletal: no symptoms reported Skin: no symptoms reported Psychiatric/Neurological: No Symptoms Reported Past Knprigx-Vlpirr-Bhjesh Hx Patient Social History Alcohol Use: Denies Use Recreational Drug Use: No Smoking Status: Never a Smoker 2nd Hand Smoke Exposure: No Recent Foreign Travel: No Contact w/Someone Who Travel: No Recent Infectious Disease Expo: No Recent Hopitalizations: No Physical Abuse: No Sexual Abuse: No Mistreated: No Fear: No Immunizations Up To Date Date of Pneumonia Vaccine: May 24, 2016 Seasonal Allergies Seasonal Allergies: No Past Medical History Surgeries: Yes Abdominal Respiratory: No Cardiac: Yes High Cholesterol, Hypertension Neurological: No Genitourinary: No Gastrointestinal: Yes Obstructive Bowel, Chronic Constipation Musculoskeletal: No Endocrine: No HEENT: Yes Hearing Impairment: Hard of Hearing, Deaf Cancer: No Psychosocial: No Integumentary: No Blood Disorders: No Adverse Reaction/Blood Tranf: No Family Medical History Hypertension Physical Exam Vital Signs Vital Signs - First Documented 03/02/18 17:12 Temp 98.2 Pulse 130 Resp 18 B/P (MAP) 179/94 (122) Pulse Ox 100 Capillary Refill : Less Than 3 Seconds Height/Weight/BMI Height: 5'2.00" Weight: 130lbs. 3.0oz. 58.311606tw; 24.8 BMI Method:Stated General Appearance: WD/WN, no apparent distress HEENT: PERRL/EOMI, normal ENT inspection Respiratory: no respiratory distress, no accessory muscle use Cardiovascular: regular rate, rhythm, no murmur, other (on my exam she is no longer tachycardic with a heart rate of 90 tho she is still hypertensive.) Gastrointestinal: normal bowel sounds, soft, tenderness Extremities: normal range of motion, non-tender Neurologic/Psychiatric: alert, normal mood/affect, oriented x 3 Skin: normal color, warm/dry Progress/Results/Core Measures Results/Orders Lab Results Laboratory Tests Test 03/02/18 17:55 Range/Units White Blood Count 7.8 4.3-11.0 10^3/uL Red Blood Count 4.56 4.35-5.85 10^6/uL Hemoglobin 14.1 11.5-16.0 G/DL Hematocrit 42 35-52 % Mean Corpuscular Volume 93 80-99 FL Mean Corpuscular Hemoglobin 31 25-34 PG Mean Corpuscular Hemoglobin Concent 33 32-36 G/DL Red Cell Distribution Width 13.1 10.0-14.5 % Platelet Count 320 130-400 10^3/uL Mean Platelet Volume 9.5 7.4-10.4 FL Neutrophils (%) (Auto) 71 42-75 % Lymphocytes (%) (Auto) 22 12-44 % Monocytes (%) (Auto) 6 0-12 % Eosinophils (%) (Auto) 1 0-10 % Basophils (%) (Auto) 0 0-10 % Neutrophils # (Auto) 5.5 1.8-7.8 X 10^3 Lymphocytes # (Auto) 1.7 1.0-4.0 X 10^3 Monocytes # (Auto) 0.5 0.0-1.0 X 10^3 Eosinophils # (Auto) 0.1 0.0-0.3 10^3/uL Basophils # (Auto) 0.0 0.0-0.1 10^3/uL Sodium Level 140 135-145 MMOL/L Potassium Level 4.2 3.6-5.0 MMOL/L Chloride Level 105 98-107 MMOL/L Carbon Dioxide Level 24 21-32 MMOL/L Anion Gap 11 5-14 MMOL/L Blood Urea Nitrogen 9 7-18 MG/DL Creatinine 0.82 0.60-1.30 MG/DL Estimat Glomerular Filtration Rate > 60 BUN/Creatinine Ratio 11 Glucose Level 110 H 70-105 MG/DL Calcium Level 10.2 H 8.5-10.1 MG/DL Corrected Calcium 9.8 8.5-10.1 MG/DL Total Bilirubin 0.6 0.1-1.0 MG/DL Aspartate Amino Transf (AST/SGOT) 22 5-34 U/L Alanine Aminotransferase (ALT/SGPT) 14 0-55 U/L Alkaline Phosphatase 97 40-136 U/L Total Protein 7.2 6.4-8.2 GM/DL Albumin 4.5 3.2-4.5 GM/DL Lipase 14 8-78 U/L My Orders Orders - MAGALY DAVIS CONSTRUCTION SUPERINTENDENT Cbc With Automated Diff (03/02/18 17:45) Comprehensive Metabolic Panel (03/02/18 17:45) Lipase (03/02/18 17:45) Ua Culture If Indicated (03/02/18 17:45) Iv Heplock-Insert (Order) (03/02/18 17:45) Ct Abdomen/Pelvis Wo (03/02/18 17:45) Fentanyl Injection (Sublimaze Injection (03/02/18 18:00) Ondansetron Injection (Zofran Injectio (03/02/18 19:45) Fentanyl Injection (Sublimaze Injection (03/02/18 19:45) Ondansetron Injection (Zofran Injectio (03/02/18 19:33) Medications Given in ED Current Medications Medications Dose Ordered Sig/Mendel Route Start Time Stop Time Status Last Admin Dose Admin Fentanyl Citrate 25 mcg ONCE PRN IVP 03/02/18 18:00 03/02/18 17:58 25 MCG Vital Signs/I&O 03/02/18 17:12 Temp 98.2 Pulse 130 Resp 18 B/P (MAP) 179/94 (122) Pulse Ox 100 Blood Pressure Mean: 122 Departure Communication (Admissions) Time/Spoke to Admitting Phy: 19:[address] Palm who is vice president consulting services for Dr. Mota. We will admit the patient consult surgery Time/Spoke to Consulting Phy: 19:53 Discussed the case with Dr. Hodgson. He agrees with nasogastric tube, IV fluids, nausea medication and he'll see the patient in the morning. Family Conversation 3-I did place a 16 [place] nasogastric tube left nostril. Patient tolerated very well. Impression Primary Impression: Small bowel obstruction Disposition: ADMITTED INPATIENT Condition: Stable Admissions Decision to Admit Reason: Admit from ER (General) Decision to Admit/Date: Mar 02, 2018 Time/Decision to Admit Time: 19:35 Departure-Patient Inst. Referrals: CORINA MOTA DO (PCP/Family) Primary Care Physician MAGALY DAVIS APRN Mar 02, 2018 17:56
[2018-03-02 18:00] LABS: BASOPHILS % (AUTO) 0 % (0-10); EOSINOPHILS # (AUTO) 0.1 10^3/uL (0.0-0.3); EOSINOPHILS % (AUTO) 1 % (0-10); HEMATOCRIT 42 % (35-52); HEMOGLOBIN 14.1 G/DL (11.5-16.0); LYMPHOCYTES # (AUTO) 1.7 X 10^3 (1.0-4.0); LYMPHOCYTES % (AUTO) 22 % (12-44); MEAN CORPUSCULAR HEMOGLOBIN 31 PG (25-34); MEAN CORPUSCULAR HGB CONC 33 G/DL (32-36); MEAN CORPUSCULAR VOLUME 93 FL (80-99); MEAN PLATELET VOLUME 9.5 FL (7.4-10.4); MONOCYTES # (AUTO) 0.5 X 10^3 (0.0-1.0); MONOCYTES % (AUTO) 6 % (0-12); NEUTROPHILS # (AUTO) 5.5 X 10^3 (1.8-7.8); NEUTROPHILS % (AUTO) 71 % (42-75); PLATELET COUNT 320 10^3/uL (130-400); RED BLOOD COUNT 4.56 10^6/uL (4.35-5.85); RED CELL DISTRIBUTION WIDTH 13.1 % (10.0-14.5); WHITE BLOOD COUNT 7.8 10^3/uL (4.3-11.0)
[2018-03-02] MEDS ORDERED: fentaNYL INJECTION 100 MCG/2 ML AMP IVP PRN ×2 (18:00→19:45)
[2018-03-02 18:19] LABS: ALANINE AMINOTRANSFERASE 14 U/L (0-55); ALBUMIN 4.5 GM/DL (3.2-4.5); ALKALINE PHOSPHATASE 97 U/L (40-136); BILIRUBIN,TOTAL 0.6 MG/DL (0.1-1.0); BUN/CREATININE RATIO 11; CALCIUM 10.2 MG/DL (8.5-10.1); CARBON DIOXIDE 24 MMOL/L (21-32); CHLORIDE 105 MMOL/L (98-107); CREATININE SERUM 0.82 MG/DL (0.60-1.30); GFR ESTIMATED > 60; GLUCOSE 110 MG/DL (70-105); LIPASE 14 U/L (8-78); POTASSIUM 4.2 MMOL/L (3.6-5.0); SODIUM 140 MMOL/L (135-145); TOTAL PROTEIN 7.2 GM/DL (6.4-8.2)
--- NOTE | 2018-03-02 19:29 | Diagnostic Imaging Report ---
PROCEDURE: CT abdomen and pelvis without contrast. TECHNIQUE: Multiple contiguous axial images were obtained through the abdomen and pelvis without the use of intravenous contrast. INDICATION: Generalized abdominal pain and cramping. History of bowel obstructions. Constipation. COMPARISON: None FINDINGS: There is atelectasis in the lung bases. The heart is normal in size. Calcified granulomas are seen in the spleen. No focal hepatic lesions are seen. The pancreas appears normal. The adrenal glands are normal. The kidneys are unremarkable. There is a very large hiatal hernia containing contrast. The stomach is moderately distended. There are multiple dilated loops of small bowel. There is fecalization of the bowel contents with a transition point seen just to the right of midline at the anterior abdomen (image 41, series 2). There is moderate stool in the colon. The appendix appears normal. There is a small amount of free fluid in the abdomen. No free air is seen. No acute osseous abnormality is seen. There are degenerative changes in the spine with left convex curvature of the lumbar spine. IMPRESSION: 1. High-grade small bowel obstruction, with transition point at the anterior midabdomen. 2. Small amount of free fluid in the abdomen. 3. Large hiatal hernia. Dictated by: Dictated on workstation # [id number]
[2018-03-02] MEDS ORDERED: ONDANSETRON 4 MG/2 ML (SDV) Z0FRAN ONE (19:33)
[2018-03-02] MEDS ORDERED: ONDANSETRON 4 MG/2 ML (SDV) Z0FRAN IVP ONE (19:45)
--- NOTE | 2018-03-02 20:19 | NUR ---
Kika was notified that urine sample needs to be obtained still.
--- NOTE | 2018-03-02 20:21 | Diagnostic Imaging Report ---
PATIENT HISTORY: Tube placement. TECHNIQUE: Single frontal view of the chest COMPARISON: 06/04/2017 FINDINGS: An enteric tube is seen with the tip projecting over the stomach. The side hole is in the location which would typically be at the distal esophagus, however, there is a very large hiatal hernia present. The lung volumes are normal. No focal airspace consolidation is seen. The cardiac silhouette is normal in size. No pleural effusion or pneumothorax is seen. Calcified lymph nodes are noted. IMPRESSION: 1. The enteric tube projects over the stomach. There is a large hiatal hernia present. Dictated by: Dictated on workstation # [id number]
--- NOTE | 2018-03-02 20:36 | NUR ---
DEREK ACOSTA admitted to room 427-1, with an admitting diagnosis of SMALL BOWEL OBSTRUCTION, on 03/02/18 from ED via , accompanied by STAFF.DEREK ACOSTA introduced to surroundings, call light, bed controls, phone, TV, temperature control, lights, meal times, smoking policy, visitor policy, side rail policy, bathrooms and showers. Patient Rights given to patient in the handbook. DEREK ACOSTA verbalizes understanding that [facility] is not responsible for the loss or damage to any personal effects or valuables that are kept in the patients possession during their hospitalization. PLANS OF CARE WERE DISCUSSED AND PT VERBALIZED UNDERSTANDING. DEREK ACOSTA verbalizes understanding of Interdisciplinary Patient Education. Patient and/or family were informed about the Rapid Response Team and its purpose.
[2018-03-02] MEDS ORDERED: CATHETER FLUSH 10 ML SYR IV PRN (21:30)
[2018-03-02] MEDS ORDERED: ONDANSETRON 4 MG/2 ML (SDV) Z0FRAN IV PRN (21:30)
[2018-03-02] MEDS ORDERED: fentaNYL INJECTION 100 MCG/2 ML AMP IV PRN (21:30)
[2018-03-02] MEDS: NS W/KCL 40 MEQ/L 1,000 ML IV SCH (21:32)
[2018-03-02] MEDS: CATHETER FLUSH 10 ML SYR IV SCH (21:32)
[2018-03-03] VITALS: BP 150/79
[2018-03-03 04:00] VITALS: BP 155/70
[2018-03-03 04:59] LABS: BILIRUBIN,URINE NEGATIVE (NEGATIVE); CLARITY,URINE CLEAR; COLOR,URINE YELLOW; GLUCOSE, URINE (UA) NEGATIVE (NEGATIVE); KETONES,URINE NEGATIVE (NEGATIVE); LEUKOCYTE ESTERASE ,URINE 1+ (NEGATIVE); NITRITE,URINE NEGATIVE (NEGATIVE); PH,URINE 7 (5-9); PROTEIN,URINE NEGATIVE (NEGATIVE); UROBILINOGEN,URINE NORMAL (NORMAL)
[2018-03-03 05:05] LABS: BACTERIA,URINE NEGATIVE /HPF; SQUAMOUS EPITHELIAL CELL,UR RARE /HPF; WBC,URINE 0-2 /HPF
[2018-03-03] MEDS: CATHETER FLUSH 10 ML SYR IV SCH ×3 (05:40→22:43)
[2018-03-03] MEDS: NS W/KCL 40 MEQ/L 1,000 ML IV SCH ×3 (05:40→22:42)
[2018-03-03 08:00] VITALS: BP 136/61
--- NOTE | 2018-03-03 08:32 | History & Physical-Hospitalist ---
History of Present Illness HPI/Chief Complaint CC: Small bowel obstruction HPI: This is a 77-year-old white female clinic patient of mine with a past medical history of hypertension and presbycusis who presented to the ER with abdominal pain that just started yesterday and increased to the point that she can no longer manage and she was assessed to have a high bowel obstruction and consulted Dr. Hodgson. NG tube was placed with good relief and she is beginning to have passage of gas. No evidence of any infectious etiology was noted. She has had small bowel obstruction in the past. Source: patient Exam Limitations: no limitations Date Seen 03/03/18 Time Seen by a Provider: 09:00 Attending Physician Jaleel Palm MD PCP Estefania Mota DO Referring Physician Date of Admission Mar 02, 2018 at 19:38 Home Medications & Allergies Home Medications Reviewed patient Home Medication Reconciliation performed by pharmacy medication reconciliations commercial pest control technician and/or nursing. Patients Allergies have been reviewed. Allergies Allergies Coded Allergies Penicillins (Verified Allergy, Severe, RASH, 06/02/17) Past Dfhcvxe-Jdgxvv-Svpkdi Hx Past Med/Social Hx: Reviewed Nursing Past Med/Soc Hx, Reviewed and Corrections made Patient Social History Marrital Status: single Employed/Student: retired Alcohol Use: Denies Use Recreational Drug Use: No Smoking Status: Never a Smoker 2nd Hand Smoke Exposure: No Physical Abuse Screen: No Sexual Abuse: No Recent Foreign Travel: No Contact w/other who traveled: No Recent Hopitalizations: No Recent Infectious Disease Expo: No Immunizations Up To Date Date of Pneumonia Vaccine: May 24, 2016 Date of Influenza Vaccine: Nov 30, 2017 Seasonal Allergies Seasonal Allergies: No Past Medical History Surgeries: Abdominal Currently Using CPAP: No Currently Using BIPAP: No Cardiac: High Cholesterol, Hypertension Sexually Transmitted Disease: No HIV/AIDS: No Female Reproductive Disorders: Denies Gastrointestinal: Obstructive Bowel, Chronic Constipation, Hiatal Hernia Hearing Impairment: Hard of Hearing, Bilateral Hearing Aide History of Blood Disorders: No Adverse Reaction to Blood [place]: No Family History Hypertension Review of Systems Constitutional: see HPI, weakness EENTM: no symptoms reported Respiratory: no symptoms reported Cardiovascular: no symptoms reported Gastrointestinal: abdominal pain (RUQ), loss of appetite, nausea, vomiting Genitourinary: no symptoms reported Musculoskeletal: no symptoms reported Skin: no symptoms reported Psychiatric/Neurological: No Symptoms Reported All Other Systems Reviewed Negative Unless Noted: Yes Physical Exam Physical Exam Vital Signs Vital Signs - First Documented 03/02/18 03/02/18 17:12 20:16 Temp 98.2 Pulse 130 Resp 18 B/P (MAP) 179/94 (122) Pulse Ox 100 O2 Delivery Room Air Capillary Refill : Less Than 3 Seconds Height, Weight, BMI Height: 5'2.00" Weight: 130lbs. 0.0oz. 58.251462dd; 23.8 BMI Method:Stated General Appearance: No Apparent Distress, WD/WN, Chronically ill Eyes: Bilateral Eye Normal Inspection, Bilateral Eye PERRL HEENT: PERRL/EOMI, Normal ENT Inspection, Pharynx Normal, Other (Severe hard of hearing) Neck: Full Range of Motion, Normal Inspection, Non Tender, Supple, Carotid Bruit Respiratory: Chest Non Tender, Lungs Clear, Normal Breath Sounds, No Accessory Muscle Use, No Respiratory Distress Cardiovascular: Regular Rate, Rhythm, No Edema, No Gallop, No JVD, No Murmur, Normal Peripheral Pulses Gastrointestinal: Normal Bowel Sounds, No Organomegaly, No Pulsatile Mass, Soft , Tenderness Back: Normal Inspection, No CVA Tenderness, No Vertebral Tenderness Extremity: Normal Capillary Refill, Normal Inspection, Normal Range of Motion, Non Tender, No Calf Tenderness, No Pedal Edema Neurologic/Psychiatric: Alert, Oriented x3, No Motor/Sensory Deficits, Normal Mood/Affect Skin: Normal Color, Warm/Dry Lymphatic: No Adenopathy Results Results/Procedures Labs Laboratory Tests 03/02/18 17:55 Patient resulted labs reviewed. Assessment/Plan Admission Diagnosis Assessment: Acute small bowel obstruction with history of small bowel obstruction in the past Severe presbycusis Hypertension Hyperlipidemia Plan: NG tube General surgery consultations appreciated Monitor closely IV fluid Supportive care Admission Status: Inpatient Order (span 2 midnights) Reason for Inpatient Admission: Small bowel obstruction recurrent type will require 3 days of hospital stay his predicted Diagnosis/Problems Diagnosis/Problems (1) Small bowel obstruction Status: Acute (2) Hypertension Status: Chronic Qualifiers: Hypertension type: essential hypertension Qualified Codes: I10 - Essential (primary) hypertension (3) Presbycusis Status: Chronic Qualifiers: Laterality: unspecified laterality Qualified Codes: H91.10 - Presbycusis, unspecified ear Clinical Quality Measures DVT/VTE Risk/Contraindication: Risk Factor Score Per Nursin RFS Level Per Nursing on Admit: 2=Moderate MOTA,ESTEFANIA DO Mar 03, 2018 08:32
[2018-03-03] MEDS: PANTOPRAZOLE 40 MG (PROTONIX) VIAL IV SCH (08:48)
[2018-03-03] MEDS ORDERED: METO-370 PO (09:01)
[2018-03-03] MEDS ORDERED: IBUP-30 PO (09:03)
--- NOTE | 2018-03-03 09:04 | NUR ---
PATIENT HAD A LIST OF HER MEDICATIONS WITH HER AND I COMPARED WITH THE EXT MED HX TO VERIFY THE PRESCRIPTIONS. SHE TAKES THE FOLLOWING OTC: ASPIRIN 81MG HS PRILOSEC DAILY CO Q 10 HS ADVIL NEEDED FOR BACK PAIN TYLENOL PRN GENERAL PAIN
--- NOTE | 2018-03-03 11:44 | Consultation ---
History of Present Illness History of Present Illness Patient Consulted On(mickie/time) 03/03/18 11:38 Date Seen by Provider: Mar 03, 2018 Time Seen by Provider: 08:00 History of Present Illness process requested by Dr. Wade for small bowel obstruction. Patient is a 77-year-old female who yesterday morning began having moderate cramping abdominal pain. No radiation. Patient states that he is feeling like she had a bowel obstruction that she remembers 3 years ago. She did have to have surgical intervention at that time. Patient states that I was while she will healed low bit discomfort in the abdomen but usually goes away. This was persistent. Patient has CT scan with oral contrast performed which was reviewed and demonstrated a transition point of a high-grade small bowel obstruction. Patient states that this morning she patient may pass a little bit of gas. She does have some difficulty with bowel movements on a regular basis and takes laxatives. She has felt nauseated but not had any emesis. She has had an NG tube overnight. Patient with no new complaints. She is feeling better and not having the abdominal pain as she was yesterday it has come down. She denies any fever sweats chills shortness of breath or chest pain. Allergies and Home Medications Allergies Coded Allergies: Penicillins (Verified Allergy, Severe, RASH, 06/02/17) Home Medications Acetaminophen 500 Mg Tablet, 500 MG PO Q4H PRN for PAIN-MILD, (Reported) Aspirin 81 Mg Tablet.dr, 81 MG PO HS, (Reported) Ibuprofen 200 Mg Tablet, 200 MG PO Q6H PRN for BACK PAIN, (Reported) Losartan Potassium 50 Mg Tablet, 50 MG PO DAILY, (Reported) Metoprolol Succinate 50 Mg Tab.er.24h, 50 MG PO DAILY, (Reported) Omeprazole 20 Mg Tablet.dr, 20 MG PO DAILY, (Reported) Pravastatin Sodium 40 Mg Tablet, 40 MG PO HS, (Reported) Ubidecarenone/Vit E/Vit E Mix 1 Each Capsule, 100 MG PO HS, (Reported) Patient Home Medication List Home Medication List Reviewed: Yes Past Kilxsef-Sikhhm-Efbazw Hx Patient Social History Alcohol Use: Denies Use Recreational Drug Use: No Smoking Status: Never a Smoker 2nd Hand Smoke Exposure: No Recent Foreign Travel: No Contact w/Someone Who Travel: No Recent Infectious Disease Expo: No Recent Hopitalizations: No Physical Abuse Screen: No Sexual Abuse: No Immunizations Up To Date Date of Pneumonia Vaccine: May 24, 2016 Date of Influenza Vaccine: Nov 30, 2017 Seasonal Allergies Seasonal Allergies: No Surgeries History of Surgeries: Yes (PREVIOUS SURGERY FOR BOWEL OBSTRUCTION) Surgeries: Abdominal Respiratory History of Respiratory Disorde: No Cardiovascular History of Cardiac Disorders: Yes Cardiac Disorders: High Cholesterol, Hypertension Neurological History of Neurological Disord: No Reproductive System Sexually Transmitted Disease: No HIV/AIDS: No Female Reproductive Disorders: Denies Genitourinary History of Genitourinary Disor: No Gastrointestinal History of Gastrointestinal Di: Yes Gastrointestinal Disorders: Obstructive Bowel, Chronic Constipation, Hiatal Hernia Musculoskeletal History of Musculoskeletal Dis: No Endocrine History of Endocrine Disorders: No HEENT History of HEENT Disorders: Yes Hearing Impairment: Hard of Hearing, Bilateral Hearing Aide Cancer History of Cancer: No Psychosocial History of Psychiatric Problem: No Integumentary History of Skin or Integumenta: No Blood Transfusions History of Blood Disorders: No Adverse Reaction to a Blood Tr: No Family Medical History Significant Family History: Hypertension Review of Systems-General Constitutional: no symptoms reported EENTM: no symptoms reported Respiratory: no symptoms reported Cardiovascular: no symptoms reported Gastrointestinal: see HPI Genitourinary: no symptoms reported Musculoskeletal: no symptoms reported Skin: no symptoms reported Psychiatric/Neurological: No Symptoms Reported Physical Exam-General Problems Physical Exam Vital Signs Vital Signs - First Documented 03/02/18 03/02/18 17:12 20:16 Temp 98.2 Pulse 130 Resp 18 B/P (MAP) 179/94 (122) Pulse Ox 100 O2 Delivery Room Air Capillary Refill : Less Than 3 Seconds General Appearance: no apparent distress HEENT: PERRL/EOMI Neck: non-tender, full range of motion, supple Respiratory: chest non-tender, no respiratory distress, no accessory muscle use Cardiovascular: regular rate, rhythm Gastrointestinal: soft, distended (minimal), tenderness (Periumbilical) Back: normal inspection, no vertebral tenderness Extremities: non-tender, normal inspection, no calf tenderness 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, no motor/sensory deficits, alert, normal mood/affect, oriented x 3 Skin: normal color, warm/dry Lymphatic: no adenopathy Data Review Labs Laboratory Tests 03/02/18 17:55: White Blood Count 7.8, Red Blood Count 4.56, Hemoglobin 14.1, Hematocrit 42, Mean Corpuscular Volume 93, Mean Corpuscular Hemoglobin 31, Mean Corpuscular Hemoglobin Concent 33, Red Cell Distribution Width 13.1, Platelet Count 320, Mean Platelet Volume 9.5, Neutrophils (%) (Auto) 71, Lymphocytes (%) (Auto) 22, Monocytes (%) (Auto) 6, Eosinophils (%) (Auto) 1, Basophils (%) (Auto) 0, Neutrophils # (Auto) 5.5, Lymphocytes # (Auto) 1.7, Monocytes # (Auto) 0.5, Eosinophils # (Auto) 0.1, Basophils # (Auto) 0.0, Sodium Level 140, Potassium Level 4.2, Chloride Level 105, Carbon Dioxide Level 24, Anion Gap 11, Blood Urea Nitrogen 9, Creatinine 0.82, Estimat Glomerular Filtration Rate > 60, BUN/ Creatinine Ratio 11, Glucose Level 110H, Calcium Level 10.2H, Corrected Calcium 9.8, Total Bilirubin 0.6, Aspartate Amino Transf (AST/SGOT) 22, Alanine Aminotransferase (ALT/SGPT) 14, Alkaline Phosphatase 97, Total Protein 7.2, Albumin 4.5, Lipase 14 03/03/18 04:30: Urine Color YELLOW, Urine Clarity CLEAR, Urine pH 7, Urine Specific Cunningham 1.015L, Urine Protein NEGATIVE, Urine Glucose (UA) NEGATIVE, Urine Ketones NEGATIVE, Urine Nitrite NEGATIVE, Urine Bilirubin NEGATIVE, Urine Urobilinogen NORMAL, Urine Leukocyte Esterase 1+H, Urine RBC (Auto) 2+H, Urine RBC 5-10H, Urine WBC 0-2, Urine Squamous Epithelial Cells RARE, Urine Crystals NONE, Urine Bacteria NEGATIVE, Urine Casts NONE, Urine Mucus SMALLH, Urine Culture Indicated NO Assessment/Plan Assessment/Plan Assessment/Plan Periumbilical abdominal pain Partial small bowel obstruction Patient is a 77-year-old female with at least partial small bowel obstruction. She has NG tube in place to low intermittent wall suction. Patient CT scan reviewed demonstrating a transition point of high-grade obstruction midline of abdomen. Patient may have passed a little bit of flatus this morning. We will get a KUB for follow-up. If patient starts passing flatus would DC NG tube. Patient understands that she still may require surgical intervention if bowel obstruction doesn't resolve. Clinical Quality Measures DVT/VTE Risk/Contraindication: Risk Factor Score Per Nursin RFS Level Per Nursing on Admit: 2=Moderate RAMAN ADKINS DO Mar 03, 2018 11:44
[2018-03-03 12:00] VITALS: BP 130/58
--- NOTE | 2018-03-03 13:10 | NUR ---
Pt is [employer] and would usually like Communion but is currently NPO.
--- NOTE | 2018-03-03 14:39 | Diagnostic Imaging Report ---
INDICATION: Small bowel obstruction. EXAMINATION: KUB at 2:34 p.m. FINDINGS: There are degenerative changes in the lumbar spine. Bowel gas pattern is normal. There are no pathologic masses or calcifications. IMPRESSION: Negative abdomen. The NG tube tip appears to be within the herniated stomach above the diaphragm. Dictated by: Dictated on workstation # [id number]
[2018-03-03 16:20] VITALS: BP 145/77
[2018-03-03] MEDS ORDERED: KETOROLAC 30 MG/ML VIAL IVP PRN (17:45)
[2018-03-03 19:35] VITALS: BP 151/69
[2018-03-04 00:03] VITALS: BP 164/83
[2018-03-04 04:04] VITALS: BP 147/80
[2018-03-04] MEDS: NS W/KCL 40 MEQ/L 1,000 ML IV SCH ×4 (06:06→23:41)
[2018-03-04] MEDS: CATHETER FLUSH 10 ML SYR IV SCH ×3 (06:07→21:10)
[2018-03-04 08:16] VITALS: BP 141/84
[2018-03-04] MEDS: PANTOPRAZOLE 40 MG (PROTONIX) VIAL IV SCH (08:26)
--- NOTE | 2018-03-04 10:10 | Progress Note-Hospitalist ---
SVETLANACORINA DO 03/04/18 1010: Subjective HPI/CC On Admission Date Seen by Provider: Mar 04, 2018 Time Seen by Provider: 10:00 CC: Small bowel obstruction HPI: This is a 77-year-old white female clinic patient of mine with a past medical history of hypertension and presbycusis who presented to the ER with abdominal pain that just started yesterday and increased to the point that she can no longer manage and she was assessed to have a high bowel obstruction and consulted Dr. Hodgson. NG tube was placed with good relief and she is beginning to have passage of gas. No evidence of any infectious etiology was noted. She has had small bowel obstruction in the past. Subjective/Events-last exam Patient still has nasogastric tube in place Passing gas Hopefully remove nasogastric tube today IV fluids are maintained Will discontinue telemetry Objective Exam Vital Signs Vital Signs Date Time Temp Pulse Resp B/P (MAP) Pulse Ox O2 Delivery O2 Flow Rate FiO2 03/04/18 08:25 Room Air 03/04/18 08:16 98.0 86 18 141/84 (103) 96 Capillary Refill : Less Than 3 Seconds General Appearance: No Apparent Distress, WD/WN Respiratory: Chest Non Tender, Lungs Clear, Normal Breath Sounds, No Accessory Muscle Use, No Respiratory Distress Cardiovascular: Regular Rate, Rhythm, No Edema, No Gallop, No JVD, No Murmur, Normal Peripheral Pulses Gastrointestinal: Normal Bowel Sounds, No Organomegaly, No Pulsatile Mass, Non Tender, Soft Neurologic/Psychiatric: Alert, Oriented x3, No Motor/Sensory Deficits, Normal Mood/Affect Results/Procedures Lab Patient resulted labs reviewed. Assessment/Plan Assessment and Plan Assess & Plan/Chief Complaint Assessment: Acute small bowel obstruction History of small bowel obstruction requiring surgical intervention 4 years ago Hypertension Hyperlipidemia Fracisco uses Plan: NG tube Appreciate Dr. Hodgson IV fluids Diagnosis/Problems Diagnosis/Problems (1) Small bowel obstruction Status: Acute (2) Hypertension Status: Chronic Qualifiers: Hypertension type: essential hypertension Qualified Codes: I10 - Essential (primary) hypertension (3) Presbycusis Status: Chronic Qualifiers: Laterality: unspecified laterality Qualified Codes: H91.10 - Presbycusis, unspecified ear Clinical Quality Measures DVT/VTE Risk/Contraindication: Risk Factor Score Per Nursin RFS Level Per Nursing on Admit: 2=Moderate KARINA,GUCCI MEDICAL STUDENT 03/04/18 1117: Subjective Subjective/Events-last exam Pt feeling better today. No abdominal pain, Pt states she has passed some gas this morning but has not had a BM yet. No fever Objective Exam General Appearance: No Apparent Distress, WD/WN HEENT: PERRL/EOMI, Other (NG tube in place) Neck: Full Range of Motion, Supple Respiratory: Chest Non Tender, Lungs Clear, Normal Breath Sounds, No Accessory Muscle Use Cardiovascular: Regular Rate, Rhythm Gastrointestinal: Non Tender, Soft, Other (bowel sounds improving) Assessment/Plan Assessment and Plan Assess & Plan/Chief Complaint Assessment: SBO History of SBO with resection History of HTN History of HLD Plan: Discuss with surgery about removal of NG tube Continue to monitor patient Continue pt on IVF and KCl while NG in place Continue to monitor electrolytes CORINA MOTA DO Mar 04, 2018 10:10 XIAO COLLINS A MEDICAL STUDENT Mar 04, 2018 11:17
[2018-03-04 12:47] VITALS: BP 151/76
[2018-03-04 15:24] VITALS: BP 146/76
--- NOTE | 2018-03-04 17:36 | Progress Note ---
Subjective Date Seen by a Provider: Mar 04, 2018 Time Seen by a Provider: 17:34 Subjective/Events-last exam patient feeling better. She's not having any abdominal pain. She is not having any nausea or vomiting. She has NG tube in place. Abdominal x-ray from yesterday showing contrast;. Patient's passing flatus and had a small amount of liquid stool she states. No blood in stool. She denies any fever sweats chills shortness of breath or chest pain. Objective Exam Vital Signs Date Time Temp Pulse Resp B/P (MAP) Pulse Ox O2 Delivery O2 Flow Rate FiO2 03/04/18 15:24 98.4 91 16 146/76 (99) 98 Room Air 03/04/18 12:47 99.0 95 18 151/76 (101) 97 Room Air 03/04/18 08:25 Room Air 03/04/18 08:16 98.0 86 18 141/84 (103) 96 Room Air 03/04/18 07:00 82 03/04/18 04:04 98.1 76 18 147/80 (102) 95 Room Air 03/04/18 01:00 70 03/04/18 00:03 98.4 71 16 164/83 (110) 96 Room Air 03/03/18 20:00 Room Air 03/03/18 19:35 98.0 76 18 151/69 (96) 95 Room Air 03/03/18 19:00 82 I & O 03/04/18 07:00 Intake Total 2000 ml Output Total 575 ml Balance 1425 ml Capillary Refill : Less Than 3 Seconds General Appearance: No Apparent Distress, WD/WN HEENT: PERRL/EOMI, Other (NG tube in place) Neck: Full Range of Motion, Supple Respiratory: Chest Non Tender, Lungs Clear, Normal Breath Sounds, No Accessory Muscle Use, No Respiratory Distress Cardiovascular: Regular Rate, Rhythm, No Edema, No Gallop, No JVD, No Murmur, Normal Peripheral Pulses Gastrointestinal: non tender, soft Extremity: Normal Capillary Refill, Normal Inspection, Normal Range of Motion, Non Tender, No Calf Tenderness, No Pedal Edema Neurologic/Psychiatric: Alert, Oriented x3, No Motor/Sensory Deficits, Normal Mood/Affect Skin: Normal Color, Warm/Dry Lymphatic: No Adenopathy Assessment/Plan Assessment/Plan Assessment/Plan Periumbilical abdominal pain-resolved Partial small bowel obstruction patient passing flatus. Patient no abdominal pain. Patient will DC NG tube at this time and started on clears. Patient if tolerates clears can advance diet slowly. Clinical Quality Measures DVT/VTE Risk/Contraindication: Risk Factor Score Per Nursin RFS Level Per Nursing on Admit: 2=Moderate RAMAN ADKINS DO Mar 04, 2018 17:36
[2018-03-05 00:09] VITALS: BP 148/70
[2018-03-05] MEDS: CATHETER FLUSH 10 ML SYR IV SCH ×2 (06:18→08:15)
[2018-03-05 08:00] VITALS: BP 148/67
[2018-03-05] MEDS: NS W/KCL 40 MEQ/L 1,000 ML IV SCH (08:14)
[2018-03-05] MEDS: PANTOPRAZOLE 40 MG (PROTONIX) VIAL IV SCH (08:14)
--- NOTE | 2018-03-05 10:30 | Discharge Summary-Hospitalist ---
Diagnosis/Chief Complaint Date of Admission Mar 02, 2018 at 19:38 Date of Discharge Discharge Date: Mar 05, 2018 Admission Diagnosis Assessment: Acute small bowel obstruction with history of small bowel obstruction in the past Severe presbycusis Hypertension Hyperlipidemia Plan: NG tube General surgery consultations appreciated Monitor closely IV fluid Supportive care Discharge Diagnosis (1) Small bowel obstruction Status: Acute (2) Hypertension Status: Chronic (3) Presbycusis Status: Chronic Discharge Summary Discharge Physical Exam Allergies: Coded Allergies: Penicillins (Verified Allergy, Severe, RASH, 06/02/17) Vitals & I&Os Vital Signs Date Time Temp Pulse Resp B/P (MAP) Pulse Ox O2 Delivery O2 Flow Rate FiO2 03/05/18 08:00 94 Room Air 03/05/18 08:00 98.0 79 16 148/67 (94) General Appearance: No Apparent Distress, WD/WN Respiratory: Chest Non Tender, Lungs Clear, Normal Breath Sounds, No Accessory Muscle Use, No Respiratory Distress Cardiovascular: Regular Rate, Rhythm, No Edema, No Gallop, No JVD, No Murmur, Normal Peripheral Pulses Gastrointestinal: Normal Bowel Sounds, No Organomegaly, No Pulsatile Mass, Non Tender, Soft Neurologic/Psychiatric: Alert, Oriented x3, No Motor/Sensory Deficits, Normal Mood/Affect Hospital Course Hospital course: Patient was admitted to the hospital after an ER visit for abdominal pain patient found to have small bowel obstruction with a history of small bowel obstruction that required resection 4 years ago. Patient was maintained on supportive care with IV fluids and general surgery consultation with pain medication. Patient eventually resolved small bowel obstruction with resultant bowel movement and she was able to tolerate oral intake so she was discharged with close follow-up with my office and Dr. Hodgson. Labs (last 24 hrs) Patient resulted labs reviewed. Discussion & Recommendations Discharge Planning: <30 minutes discharge planning Discharge Home Medications: Active Scripts Active Reported Advil (Ibuprofen) 200 Mg Tablet 200 Mg PO Q6H PRN Metoprolol Succinate 50 Mg Tab.er.24h 50 Mg PO DAILY Tylenol Extra Strength (Acetaminophen) 500 Mg Tablet 500 Mg PO Q4H PRN Omeprazole 20 Mg Tablet.dr 20 Mg PO DAILY Co-Enzyme Q10 100 mg Softgel (Ubidecarenone/Vit E/Vit E Mix) 1 Each Capsule 100 Mg PO HS Aspirin EC (Aspirin) 81 Mg Tablet.dr 81 Mg PO HS Pravastatin Sodium 40 Mg Tablet 40 Mg PO HS Losartan Potassium 50 Mg Tablet 50 Mg PO DAILY Instructions to patient/family Please see electronic discharge instructions given to patient. Clinical Quality Measures DVT/VTE Risk/Contraindication: Risk Factor Score Per Nursin RFS Level Per Nursing on Admit: 2=Moderate Problem Qualifiers (1) Hypertension: Hypertension type: essential hypertension Qualified Codes: I10 - Essential ( primary) hypertension (2) Presbycusis: Laterality: unspecified laterality Qualified Codes: H91.10 - Presbycusis, unspecified ear CORINA MOTA DO Mar 05, 2018 10:30
--- NOTE | 2018-03-05 10:44 | Progress Note ---
Subjective Date Seen by a Provider: Mar 05, 2018 Time Seen by a Provider: 10:42 Subjective/Events-last exam doing well. passing flatus and had bm this morning. denies any nausea or emesis tolerating liquids. No new complaints. Objective Exam Vital Signs Date Time Temp Pulse Resp B/P (MAP) Pulse Ox O2 Delivery O2 Flow Rate FiO2 03/05/18 08:00 98.0 79 16 148/67 (94) 94 Room Air 03/05/18 00:09 98.3 78 18 148/70 (96) 94 Room Air 03/04/18 15:24 98.4 91 16 146/76 (99) 98 Room Air 03/04/18 12:47 99.0 95 18 151/76 (101) 97 Room Air I & O 03/05/18 07:00 Intake Total 2700 ml Balance 2700 ml Capillary Refill : Less Than 3 Seconds General Appearance: No Apparent Distress, WD/WN HEENT: PERRL/EOMI, Other (NG tube in place) Neck: Full Range of Motion, Supple Respiratory: Chest Non Tender, Lungs Clear, Normal Breath Sounds, No Accessory Muscle Use, No Respiratory Distress Cardiovascular: Regular Rate, Rhythm, No Edema, No Gallop, No JVD, No Murmur, Normal Peripheral Pulses Gastrointestinal: non tender, soft Extremity: Normal Capillary Refill, Normal Inspection, Normal Range of Motion, Non Tender, No Calf Tenderness, No Pedal Edema Neurologic/Psychiatric: Alert, Oriented x3, No Motor/Sensory Deficits, Normal Mood/Affect Skin: Normal Color, Warm/Dry Lymphatic: No Adenopathy Assessment/Plan Assessment/Plan Assessment/Plan Periumbilical abdominal pain-resolved Partial small bowel obstruction patient passing flatus and bm advance diet if tolerates okay to dc home from surgical standpoint patient discussed always a change this would come back. Clinical Quality Measures DVT/VTE Risk/Contraindication: Risk Factor Score Per Nursin RFS Level Per Nursing on Admit: 2=Moderate RAMAN ADKINS DO Mar 05, 2018 10:44
[2018-03-05 12:15] VITALS: BP 148/67
--- NOTE | 2018-03-05 12:30 | NUR ---
DEREK ACOSTA demonstrates understanding of discharge instructions and accurately returns instructions upon questioning. Copy of Post-Discharge Instructions and Medication Discharge Instructions given to PATIENT. DEREK ACOSTA is able to manage continuing needs after discharge. Patients belongings returned to PATIENT. Skin dry and intact; no breakdown noted. Patient discharged from [facility] on 03/05/18 at 12:30 . DEREK ACOSTA left floor via WHEEL CHAIR, accompanied by FAMILY AND STAFF.
== END 2018-03-05 12:30 | disposition home or self-care (01) | DRG 390 ==
LOC: EDUNIT# 16:47 → ER 16:48 → 4TH 19:38
PROVIDERS: ADMIT Internal Medicine; ATTEND Internal Medicine
PROC: 0D9670Z Drainage of Stomach with Drainage Device, Via Natural or Artificial Opening (ICD-10-PCS; principal; 2018-03-02)
DX: K56.690 Other partial intestinal obstruction (principal); K59.09 Other constipation; I10 Essential (primary) hypertension; E78.00 Pure hypercholesterolemia, unspecified; K44.9 Diaphragmatic hernia without obstruction or gangrene; H91.13 Presbycusis, bilateral; Z97.4 Presence of external hearing-aid
CPT/HCPCS: 36415; 71045; 74018; 74176; 80053; 81000; 83690; 85025; 96374; 96375; 96376

== ENCOUNTER 2018-06-22 16:58 | Inpatient (IN) | payer MEDICARE ==
[~2018-06-22] VITALS: Ht 157.5 cm; Wt 54.4 kg
[~2018-06-22 16:58] MED LIST changes: +IBUP-30 PO; +LOSA50TA63 PO; -LOSA50TA7 PO
[2018-06-22] MEDS ORDERED: LACTATED RINGERS 1,000 ML IV ONE (17:18)
--- NOTE | 2018-06-22 17:24 | ED Abdominal Pain ---
General Chief Complaint: Abdominal/GI Problems Stated Complaint: ABD PAIN Nursing Triage Note: pt states she has has abd pain like she had before when she had an obstruction. Pts last BM was a couple days ago. Sepsis Screen: No Definite Risk Source of Information: Patient (PT IS VERY HARD OF HEARING) (CECIL APONTEA Didi MCHUGH) History of Present Illness Date Seen by Provider: Jun 22, 2018 Time Seen by Provider: 17:10 Initial Comments PT ARRIVES VIA POV FROM HOME C/O SHARP PAINS ALL ACROSS UPPER ABDOMEN PAINS BEGAN AROUND 0730 THIS AM, AND COME AND GO PT WAS FINE LAST NIGHT PT ATE BREAKFAST, BUT THEN HAS NOT HAD AN APPETITE SINCE THEN. STATES SHE IS NOT NAUSEATED, AND NO VOMITING LAST BM A COUPLE OF DAYS AGO, HAS CHRONIC CONSTIPATION AND TAKES MIRALAX DAILY NO URINARY COMPLAINTS NO FEVER PT HAD A BOWEL OBSTRUCTION 3 YEARS AGO AND HAD SURGERY PT HAD ANOTHER BOWEL OBSTRUCTION IN FEBRUARY, BUT TREATED NON-SURGICALLY PCP: DR. MOTA (ALEXANDREA APONTE DO) Allergies and Home Medications Allergies Coded Allergies: Penicillins (Verified Allergy, Severe, RASH, 06/02/17) Home Medications Acetaminophen 500 Mg Tablet, 500 MG PO Q4H PRN for PAIN-MILD, (Reported) Aspirin 81 Mg Tablet.dr, 81 MG PO HS, (Reported) Ibuprofen 200 Mg Tablet, 200 MG PO Q6H PRN for BACK PAIN, (Reported) Losartan Potassium 50 Mg Tablet, 50 MG PO DAILY, (Reported) Metoprolol Succinate 50 Mg Tab.er.24h, 50 MG PO DAILY, (Reported) Omeprazole 20 Mg Tablet.dr, 20 MG PO DAILY, (Reported) Pravastatin Sodium 40 Mg Tablet, 40 MG PO HS, (Reported) Ubidecarenone/Vit E/Vit E Mix 1 Each Capsule, 100 MG PO HS, (Reported) Patient Home Medication List Home Medication List Reviewed: Yes (AMADOR DE OLIVEIRA MD) Review of Systems Review of Systems Constitutional: no symptoms reported Respiratory: No Symptoms Reported Cardiovascular: No Symptoms Reported Gastrointestinal: See HPI, Abdominal Pain, Constipated; Denies Nausea; Poor Appetite; Denies Poor Fluid Intake, Denies Vomiting Genitourinary: No Symptoms Reported Musculoskeletal: no symptoms reported Skin: no symptoms reported Psychiatric/Neurological: No Symptoms Reported Endocrine: No Symptoms Reported Hematologic/Lymphatic: No Symptoms Reported (ALEXANDREA APONTE DO) Past Rcmgvpb-Yblxlw-Igdvrc Hx Patient Social History Alcohol Use: Rarely Uses Recreational Drug Use: No Smoking Status: Never a Smoker 2nd Hand Smoke Exposure: No Recent Foreign Travel: No Contact w/Someone Who Travel: No Recent Infectious Disease Expo: No Recent Hopitalizations: No (ALEXANDREA APONTE DO) Immunizations Up To Date Date of Pneumonia Vaccine: May 24, 2016 Date of Influenza Vaccine: Nov 30, 2017 (ALEXANDREA APONTE DO) Seasonal Allergies Seasonal Allergies: No (ALEXANDREA APONTE ) Past Medical History Surgeries: Yes (PREVIOUS SURGERY FOR BOWEL OBSTRUCTION) Abdominal, Bowel Surgery Respiratory: No Currently Using CPAP: No Currently Using BIPAP: No Cardiac: Yes High Cholesterol, Hypertension Neurological: No 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 Sexually Transmitted Disease: No HIV/AIDS: No Genitourinary: No Gastrointestinal: Yes (BOWEL OBSTRUCTION SURGERY 3 YEARS AGO, THEN BOWEL OBSTRUCTION 02/2018--TREATED NON-SURGICALLY) Obstructive Bowel, Chronic Constipation, Hiatal Hernia Musculoskeletal: No Endocrine: No HEENT: Yes Hearing Impairment: Hard of Hearing, Bilateral Hearing Aide Cancer: No Psychosocial: No Integumentary: No Blood Disorders: No Adverse Reaction/Blood Tranf: No (ALEXANDREA APONTE DO) Family Medical History Hypertension (ALEXANDREA APONTE DO) Physical Exam Vital Signs Vital Signs - First Documented 06/22/18 17:00 Temp 98.2 Pulse 92 Resp 18 B/P (MAP) 163/79 (107) Pulse Ox 96 O2 Delivery Room Air (AMADOR DE OLIVEIRA MD) Vital Signs Capillary Refill : Less Than 3 Seconds (ALEXANDREA APONTE DO) Height/Weight/BMI Height: 5'0" Weight: 120lbs. 0.0oz. [id number]; 23.8 BMI Method:Stated General Appearance: WD/WN, no apparent distress, other (VERY HARD OF HEARING) Neck: normal inspection Respiratory: normal breath sounds, no respiratory distress, no accessory muscle use Cardiovascular: normal peripheral pulses, regular rate, rhythm, no edema, no JVD, no murmur Gastrointestinal: normal bowel sounds, soft, no organomegaly, no pulsatile mass ; No distended, No guarding, No rebound; tenderness (MILD EPIGASTRIC TENDERNESS) Extremities: normal inspection, no pedal edema Back: no CVA tenderness Neurologic/Psychiatric: roller billet mill II-XII nml as tested, no motor/sensory deficits, alert, normal mood/affect, oriented x 3 Skin: normal color, warm/dry (ALEXANDREA APONTE DO) Progress/Results/Core Measures Results/Orders Lab Results Laboratory Tests Test 06/22/18 17:15 Range/Units White Blood Count 8.2 4.3-11.0 10^3/uL Red Blood Count 4.81 4.35-5.85 10^6/uL Hemoglobin 14.7 11.5-16.0 G/DL Hematocrit 45 35-52 % Mean Corpuscular Volume 93 80-99 FL Mean Corpuscular Hemoglobin 31 25-34 PG Mean Corpuscular Hemoglobin Concent 33 32-36 G/DL Red Cell Distribution Width 13.9 10.0-14.5 % Platelet Count 325 130-400 10^3/uL Mean Platelet Volume 9.7 7.4-10.4 FL Neutrophils (%) (Auto) 69 42-75 % Lymphocytes (%) (Auto) 23 12-44 % Monocytes (%) (Auto) 7 0-12 % Eosinophils (%) (Auto) 1 0-10 % Basophils (%) (Auto) 0 0-10 % Neutrophils # (Auto) 5.6 1.8-7.8 X 10^3 Lymphocytes # (Auto) 1.9 1.0-4.0 X 10^3 Monocytes # (Auto) 0.6 0.0-1.0 X 10^3 Eosinophils # (Auto) 0.1 0.0-0.3 10^3/uL Basophils # (Auto) 0.0 0.0-0.1 10^3/uL Prothrombin Time 12.7 12.2-14.7 SEC INR Comment 0.9 0.8-1.4 Activated Partial Thromboplast Time 31 24-35 SEC Sodium Level 140 135-145 MMOL/L Potassium Level 3.9 3.6-5.0 MMOL/L Chloride Level 104 98-107 MMOL/L Carbon Dioxide Level 23 21-32 MMOL/L Anion Gap 13 5-14 MMOL/L Blood Urea Nitrogen 9 7-18 MG/DL Creatinine 0.80 0.60-1.30 MG/DL Estimat Glomerular Filtration Rate > 60 BUN/Creatinine Ratio 11 Glucose Level 105 70-105 MG/DL Calcium Level 11.0 H 8.5-10.1 MG/DL Corrected Calcium 8.5-10.1 MG/DL Magnesium Level 2.2 1.8-2.4 MG/DL Total Bilirubin 0.7 0.1-1.0 MG/DL Aspartate Amino Transf (AST/SGOT) 21 5-34 U/L Alanine Aminotransferase (ALT/SGPT) 15 0-55 U/L Alkaline Phosphatase 103 40-136 U/L Total Protein 8.0 6.4-8.2 GM/DL Albumin 4.6 H 3.2-4.5 GM/DL Amylase Level 73 25-125 U/L Lipase 11 8-78 U/L (AMADOR DE OLIVEIRA MD) My Orders Orders - AMADOR D EOLIVEIRA MD Fentanyl Injection (Sublimaze Injection (06/22/18 18:30) Famotidine Injection (Pepcid Injection) (06/22/18 18:30) (AMADOR DE OLIVEIRA MD) Medications Given in ED Current Medications Medications Dose Ordered Sig/Mendel Route Start Time Stop Time Status Last Admin Dose Admin Famotidine 20 mg ONCE ONCE IVP 06/22/18 18:30 06/22/18 18:31 DC 06/22/18 19:28 20 MG Fentanyl Citrate 50 mcg ONCE ONCE IVP 06/22/18 18:30 06/22/18 18:31 DC 06/22/18 18:35 50 MCG Lactated Ringer's 1,000 ml @ 0 mls/hr Q0M ONCE IV 06/22/18 17:18 06/22/18 17:20 DC 06/22/18 17:41 0 MLS/HR (AMADOR DE OLIVEIRA MD) Vital Signs/I&O 06/22/18 17:00 Temp 98.2 Pulse 92 Resp 18 B/P (MAP) 163/79 (107) Pulse Ox 96 O2 Delivery Room Air (AMADOR DE OLIVEIRA MD) Blood Pressure Mean: 107 Progress Progress Note : Progress Note 1800--CARE TURNED OVER TO DR. DE OLIVEIRA, TEST RESULTS PENDING (ALEXANDREA APONTE DO) Progress Note : Time: 19:34 Progress Note Care of this patient was assumed from Dr. Aponte at shift change. Patient was treated with fentanyl and Pepcid. Imaging studies were reviewed and she was found to have a large hiatal hernia, small bowel obstruction, and biliary sludge. She will be admitted to Dr. Hodgson. She will have a small bowel follow -through in the a.m. Dr. Palm is being consulted by Dr. Hodgson's request. Dr. Hodgson also requested an NG tube. Symptoms were controlled at the time of admission. (AMADOR DE OLIVEIRA MD) Diagnostic Imaging Diagonstic Imaging: Xray Plain Films/CT/US/NM/MRI: chest, abdomen Comments Acute abdominal series viewed by me and report reviewed. See report below: NAME: DEREK ACOSTA [facility] REC#: [id number] PT STATUS: REG ER : 1940 PHYSICIAN: ALEXANDREA APONTE DO ADMIT DATE: 06/22/18/ER Draft Date of Exam:06/22/18 ACUTE ABD SERIES Indication: Abdominal pain. Time of exam: 5:46 PM Image of the chest demonstrates an air-fluid level in the midline lower chest consistent with a large hiatal hernia. Lungs are clear. There is no effusion. No definite free air is identified on the upright view. Bowel gas pattern is nonspecific. No definite pathologic calcifications are seen. No significantly dilated bowel loops are detected. Left convexity lumbar scoliosis and degenerative changes seen. Impression: 1. Large hiatal hernia. 2. No acute feature is detected. Dictated on workstation # [id number] Dict: 06/22/18 1750 Trans: 06/22/18 175 [facility] [id number] Interpreted by: TIAGO FORTUNE MD Diagonstic Imaging: CT Plain Films/CT/US/NM/MRI: abdomen, pelvis Comments CT abdomen and pelvis viewed by me and report reviewed. See report below: NAME: DEREK ACOSTA [facility] REC#: [id number] PT STATUS: REG ER : 1940 PHYSICIAN: ALEXANDREA APONTE DO ADMIT DATE: 06/22/18/ER Draft Date of Exam:06/22/18 CT ABDOMEN/PELVIS WO PROCEDURE: CT abdomen and pelvis without contrast. TECHNIQUE: Multiple contiguous axial images were obtained through the abdomen and pelvis without the use of intravenous contrast. Auto Exposure Controls were utilized during the CT exam to meet ALARA standards for radiation dose reduction. INDICATION: 77-year-old female presents to the ER with upper abdominal pain, a history of bowel obstruction. COMPARISONS: 03/02/2018 FINDINGS: The lung bases show subpleural dependent atelectasis but no significant consolidations. Some hilar and mediastinal calcified lymph nodes are probably the sequela of previous granulomatous disease. Cardiac contour is normal. Coronary calcifications are seen. Liver shows uniform attenuation. There is a trace amount of perihepatic ascites. There is no intraparenchymal mass or ductal dilatation. Gallbladder shows minimal sludge but no wall thickening or pericholecystic fluid. Several small calcified granuloma are seen in the spleen. There is a large hiatal hernia. Stomach and duodenal sweep are otherwise grossly normal. Pancreas shows sharp margins. Adrenals are normal. Kidneys appear normal in size, composition and contour. There is no evidence of obstructive uropathy. Both ureters are seen through their course and appear grossly normal. Partially filled bladder is unremarkable. Multiple pelvic phleboliths are seen. Nonopacified loops of small bowel show fluid-filled loops with air-fluid levels with moderate distention. The transition point is in the mid to distal small bowel. The appendix is normal. Large bowel contains fecal material and gas. There is no free air or adenopathy. There is a trace amount of free pelvic fluid. Nonaneurysmal calcifications of the aorta are seen. Bone windows show moderate degenerative changes of the lumbosacral spine. IMPRESSION: 1. Partial to complete small bowel obstruction in the mid to distal small bowel, with localized ileus less likely. There is associated fluid-filled small bowel with air-fluid levels with moderate distention. Perhaps a Gastrografin small bowel follow-through clinical correlation would be of further value. 2. Fecal colon. 3. Minimal biliary sludge but no evidence of cholecystitis 4. Trace perihepatic ascites as well as trace amount of free pelvic fluid 5. Large hiatal hernia. Additional nonemergent findings as described above. Dictated on workstation # [id number] Dict: 06/22/18 1847 Trans: 06/22/18 1900 [facility] [id number] Interpreted by: LÓPEZ LINDSAY MD (AMADOR DE OLIVEIRA MD) Departure Communication (Admissions) Time/Spoke to Admitting Phy: 19:25 Dr. Hodgson Time/Spoke to Consulting Phy: 19:30 Dr. Palm (AMADOR DE OLIVEIRA MD) Impression Primary Impression: Small bowel obstruction Additional Impressions: Hiatal hernia Biliary sludge Disposition: ADMITTED INPATIENT Condition: Improved Admissions Decision to Admit Reason: Admit from ER (General) Decision to Admit/Date: Jun 22, 2018 Time/Decision to Admit Time: 19:20 (AMADOR DE OLIVEIRA MD) Departure-Patient Inst. Referrals: CORINA MOTA DO (PCP/Family) Primary Care Physician ALEXANDREA APONTE DO Jun 22, 2018 17:24 AMADOR DE OLIVEIRA MD Jun 22, 2018 19:15
[2018-06-22 17:30] LABS: BASOPHILS % (AUTO) 0 % (0-10); EOSINOPHILS # (AUTO) 0.1 10^3/uL (0.0-0.3); EOSINOPHILS % (AUTO) 1 % (0-10); HEMATOCRIT 45 % (35-52); HEMOGLOBIN 14.7 G/DL (11.5-16.0); LYMPHOCYTES # (AUTO) 1.9 X 10^3 (1.0-4.0); LYMPHOCYTES % (AUTO) 23 % (12-44); MEAN CORPUSCULAR HEMOGLOBIN 31 PG (25-34); MEAN CORPUSCULAR HGB CONC 33 G/DL (32-36); MEAN CORPUSCULAR VOLUME 93 FL (80-99); MEAN PLATELET VOLUME 9.7 FL (7.4-10.4); MONOCYTES # (AUTO) 0.6 X 10^3 (0.0-1.0); MONOCYTES % (AUTO) 7 % (0-12); NEUTROPHILS # (AUTO) 5.6 X 10^3 (1.8-7.8); NEUTROPHILS % (AUTO) 69 % (42-75); PLATELET COUNT 325 10^3/uL (130-400); RED CELL DISTRIBUTION WIDTH 13.9 % (10.0-14.5); WHITE BLOOD COUNT 8.2 10^3/uL (4.3-11.0)
[2018-06-22 17:41] LABS: INR 0.9 (0.8-1.4); PROTHROMBIN TIME PATIENT 12.7 SEC (12.2-14.7)
[2018-06-22 17:49] LABS: ALANINE AMINOTRANSFERASE 15 U/L (0-55); ALBUMIN 4.6 GM/DL (3.2-4.5); ALKALINE PHOSPHATASE 103 U/L (40-136); AMYLASE 73 U/L (25-125); BILIRUBIN,TOTAL 0.7 MG/DL (0.1-1.0); BUN/CREATININE RATIO 11; CARBON DIOXIDE 23 MMOL/L (21-32); CHLORIDE 104 MMOL/L (98-107); GFR ESTIMATED > 60; GLUCOSE 105 MG/DL (70-105); LIPASE 11 U/L (8-78); MAGNESIUM 2.2 MG/DL (1.8-2.4); POTASSIUM 3.9 MMOL/L (3.6-5.0); SODIUM 140 MMOL/L (135-145)
--- NOTE | 2018-06-22 17:55 | Diagnostic Imaging Report ---
Indication: Abdominal pain. Time of exam: 5:46 PM Image of the chest demonstrates an air-fluid level in the midline lower chest consistent with a large hiatal hernia. Lungs are clear. There is no effusion. No definite free air is identified on the upright view. Bowel gas pattern is nonspecific. No definite pathologic calcifications are seen. No significantly dilated bowel loops are detected. Left convexity lumbar scoliosis and degenerative changes seen. Impression: 1. Large hiatal hernia. 2. No acute feature is detected. Dictated by: Dictated on workstation # [id number]
[2018-06-22] MEDS ORDERED: fentaNYL INJECTION 100 MCG/2 ML AMP ONE (18:21)
[2018-06-22] MEDS ORDERED: FAMOTIDINE 20MG/2ML IV (PEPCID) IVP ONE (18:30)
[2018-06-22] MEDS ORDERED: fentaNYL INJECTION 100 MCG/2 ML AMP IVP ONE (18:30)
--- NOTE | 2018-06-22 19:00 | Diagnostic Imaging Report ---
PROCEDURE: CT abdomen and pelvis without contrast. TECHNIQUE: Multiple contiguous axial images were obtained through the abdomen and pelvis without the use of intravenous contrast. Auto Exposure Controls were utilized during the CT exam to meet ALARA standards for radiation dose reduction. INDICATION: 77-year-old female presents to the ER with upper abdominal pain, a history of bowel obstruction. COMPARISONS: 03/02/2018 FINDINGS: The lung bases show subpleural dependent atelectasis but no significant consolidations. Some hilar and mediastinal calcified lymph nodes are probably the sequela of previous granulomatous disease. Cardiac contour is normal. Coronary calcifications are seen. Liver shows uniform attenuation. There is a trace amount of perihepatic ascites. There is no intraparenchymal mass or ductal dilatation. Gallbladder shows minimal sludge but no wall thickening or pericholecystic fluid. Several small calcified granuloma are seen in the spleen. There is a large hiatal hernia. Stomach and duodenal sweep are otherwise grossly normal. Pancreas shows sharp margins. Adrenals are normal. Kidneys appear normal in size, composition and contour. There is no evidence of obstructive uropathy. Both ureters are seen through their course and appear grossly normal. Partially filled bladder is unremarkable. Multiple pelvic phleboliths are seen. Nonopacified loops of small bowel show fluid-filled loops with air-fluid levels with moderate distention. The transition point is in the mid to distal small bowel. The appendix is normal. Large bowel contains fecal material and gas. There is no free air or adenopathy. There is a trace amount of free pelvic fluid. Nonaneurysmal calcifications of the aorta are seen. Bone windows show moderate degenerative changes of the lumbosacral spine. IMPRESSION: 1. Partial to complete small bowel obstruction in the mid to distal small bowel, with localized ileus less likely. There is associated fluid-filled small bowel with air-fluid levels with moderate distention. Perhaps a Gastrografin small bowel follow-through clinical correlation would be of further value. 2. Fecal colon. 3. Minimal biliary sludge but no evidence of cholecystitis 4. Trace perihepatic ascites as well as trace amount of free pelvic fluid 5. Large hiatal hernia. Additional nonemergent findings as described above. Dictated by: Dictated on workstation # [id number]
--- NOTE | 2018-06-22 20:30 | NUR ---
Rupal Lovett admitted to room 423-1, with an admitting diagnosis of SBO, on 06/22/18 from ED WC, accompanied by STAFF AND FAMILY .RUPAL LOVETT introduced to surroundings, call light, bed controls, phone, TV, temperature control, lights, meal times, smoking policy, visitor policy, side rail policy, bathrooms and showers. Patient Rights given to patient in the handbook.RUPAL LOVETT verbalizes understanding that [facility] is not responsible for the loss or damage to any personal effects or valuables that are kept in the patients posession during their hospitalization.
[2018-06-22] MEDS ORDERED: ONDANSETRON 4 MG/2 ML (SDV) Z0FRAN IV PRN (20:45)
[2018-06-22] MEDS ORDERED: fentaNYL INJECTION 100 MCG/2 ML AMP IV PRN (20:45)
[2018-06-22 20:51] VITALS: BP 165/70
[2018-06-22] MEDS: D5 1/2 NS W/KCL 20 MEQ/L 1,000 ML IV SCH (22:03)
[2018-06-22] MEDS: PANTOPRAZOLE 40 MG (PROTONIX) VIAL IV SCH (22:03)
[2018-06-23] VITALS: BP 131/68
[2018-06-23 04:00] VITALS: BP 155/72
[2018-06-23 04:35] LABS: BASOPHILS % (AUTO) 0 % (0-10); EOSINOPHILS # (AUTO) 0.1 10^3/uL (0.0-0.3); EOSINOPHILS % (AUTO) 1 % (0-10); HEMATOCRIT 41 % (35-52); HEMOGLOBIN 13.6 G/DL (11.5-16.0); LYMPHOCYTES # (AUTO) 1.2 X 10^3 (1.0-4.0); LYMPHOCYTES % (AUTO) 17 % (12-44); MEAN CORPUSCULAR HEMOGLOBIN 31 PG (25-34); MEAN CORPUSCULAR HGB CONC 33 G/DL (32-36); MEAN CORPUSCULAR VOLUME 94 FL (80-99); MEAN PLATELET VOLUME 9.6 FL (7.4-10.4); MONOCYTES # (AUTO) 0.6 X 10^3 (0.0-1.0); MONOCYTES % (AUTO) 8 % (0-12); NEUTROPHILS # (AUTO) 5.4 X 10^3 (1.8-7.8); NEUTROPHILS % (AUTO) 74 % (42-75); PLATELET COUNT 276 10^3/uL (130-400); RED CELL DISTRIBUTION WIDTH 13.8 % (10.0-14.5); WHITE BLOOD COUNT 7.3 10^3/uL (4.3-11.0)
[2018-06-23 04:59] LABS: ALANINE AMINOTRANSFERASE 12 U/L (0-55); ALBUMIN 3.9 GM/DL (3.2-4.5); ALKALINE PHOSPHATASE 91 U/L (40-136); BILIRUBIN,TOTAL 0.8 MG/DL (0.1-1.0); BUN/CREATININE RATIO 11; CALCIUM 9.6 MG/DL (8.5-10.1); CARBON DIOXIDE 22 MMOL/L (21-32); CHLORIDE 105 MMOL/L (98-107); CREATININE SERUM 0.76 MG/DL (0.60-1.30); GFR ESTIMATED > 60; GLUCOSE 140 MG/DL (70-105); POTASSIUM 4.2 MMOL/L (3.6-5.0); SODIUM 137 MMOL/L (135-145); TOTAL PROTEIN 6.4 GM/DL (6.4-8.2)
--- NOTE | 2018-06-23 06:14 | Diagnostic Imaging Report ---
INDICATION: NG tube placement evaluate tip position. COMPARISONS: 06/22/2018. FINDINGS: Single view of the chest show senescent chest with emphysematous changes and chronic parenchymal changes. There is left basilar atelectatic infiltrates. There is a large hiatal hernia. Tip of the NG tube, however, appears to be beyond the GE junction through the esophageal hiatus into the gastric fundus. IMPRESSION: 1. Large hiatal hernia. 2. NG tube tip appears to be projected over the expected region of the gastric fundus. 3. Left basilar atelectatic infiltrates. Dictated by: Dictated on workstation # [id number]
[2018-06-23] MEDS: D5 1/2 NS W/KCL 20 MEQ/L 1,000 ML IV SCH ×3 (06:21→22:57)
[2018-06-23 08:00] VITALS: BP 151/83
[2018-06-23] MEDS ORDERED: DIATRIZOATE MEGLUM/SODIUM 37% 120 ML (GASTROGRAFIN) NG ONE (08:45)
[2018-06-23] MEDS: PANTOPRAZOLE 40 MG (PROTONIX) VIAL IV SCH (09:55)
--- NOTE | 2018-06-23 10:16 | Diagnostic Imaging Report ---
INDICATION: Abdominal pain and distention. COMPARISON: 06/22/2018. FINDINGS: There has been interval placement of a nasogastric tube which is in the body of the stomach. The small bowel follow-through was performed via the NG tube. There are some mildly dilated loops of small bowel. There is, however, transit into the colon by 30 minutes. There are no abnormal abdominal calcifications. The small bowel mucosa is grossly unremarkable. IMPRESSION: Mildly dilated loops of proximal small bowel; however, there is rapid transit of contrast through the small bowel into the colon in less than 30 minutes. The findings may reflect an ileus or possibly a mild partial small bowel obstruction. Recommend clinical correlation and followup imaging as warranted. Dictated by: Dictated on workstation # [id number]
--- NOTE | 2018-06-23 10:25 | History & Physical-Surgical ---
History of Present Illness History of Present Illness Reason for visit/HPI CC: Abdominal Pain with possible small bowel obstruction Patient is a 77 year old female who presented on 06/22/18 with abdominal pain. She describes the pain as sharp and localizing to the epigastric region with no radiation. She says that this was severe rating it at a 10 and was accompanied with an episode of nausea and vomiting. Nothing seemed to make things improved and nothing really seemed to make her symptoms worsen. Today, she is not having any pain. She reports having flatus and a bowel movement as recently as earlier this morning. She had a ct scan that was suggestive of partial to complete small bowel obstruction. She had an NG tube placed yesterday evening and feeling better. Currently having small bowel follow through performed. Has had previous admissions for partial sbo. Date of Admission Jun 22, 2018 at 19:33 Date Seen by a Provider: June 23, 2018 Time Seen by a Provider: 10:17 I consulted on this patient on 06/23/18 10:16 Attending Physician Raman Hodgson DO Admitting Physician Estefania Wade DO Consult Allergies and Home Medications Allergies Coded Allergies: Penicillins (Verified Allergy, Severe, RASH, 06/02/17) Home Medications Acetaminophen 500 Mg Tablet, 500 MG PO Q4H PRN for PAIN-MILD, (Reported) Aspirin 81 Mg Tablet.dr, 81 MG PO HS, (Reported) Ibuprofen 200 Mg Tablet, 200 MG PO Q6H PRN for BACK PAIN, (Reported) Losartan Potassium 50 Mg Tablet, 50 MG PO DAILY, (Reported) Metoprolol Succinate 50 Mg Tab.er.24h, 50 MG PO DAILY, (Reported) Omeprazole 20 Mg Tablet.dr, 20 MG PO DAILY, (Reported) Pravastatin Sodium 40 Mg Tablet, 40 MG PO HS, (Reported) Ubidecarenone/Vit E/Vit E Mix 1 Each Capsule, 100 MG PO HS, (Reported) Patient Home Medication List Home Medication List Reviewed: Yes Past Zimenqx-Yeasxg-Wgsnbr Hx Patient Social History Alcohol Use: Rarely Uses Recreational Drug Use: No Smoking Status: Never a Smoker 2nd Hand Smoke Exposure: No Recent Foreign Travel: No Contact w/Someone Who Travel: No Recent Infectious Disease Expo: No Recent Hopitalizations: No Immunizations Up To Date Tetanus Booster (TDap): Unknown Date of Pneumonia Vaccine: May 24, 2016 Date of Influenza Vaccine: Nov 30, 2017 Seasonal Allergies Seasonal Allergies: No Surgeries History of Surgeries: Yes (PREVIOUS SURGERY FOR BOWEL OBSTRUCTION) Surgeries: Abdominal, Bowel Surgery Respiratory History of Respiratory Disorde: No Cardiovascular History of Cardiac Disorders: Yes Cardiac Disorders: High Cholesterol, Hypertension Neurological History of Neurological Disord: No Reproductive System Sexually Transmitted Disease: No HIV/AIDS: No Female Reproductive Disorders: Denies 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 Genitourinary History of Genitourinary Disor: No Gastrointestinal History of Gastrointestinal Di: Yes (BOWEL OBSTRUCTION SURGERY 3 YEARS AGO, THEN BOWEL OBSTRUCTION 02/2018--TREATED NON-SURGICALLY) Gastrointestinal Disorders: Obstructive Bowel, Chronic Constipation, Hiatal Hernia Musculoskeletal History of Musculoskeletal Dis: No Endocrine History of Endocrine Disorders: No HEENT History of HEENT Disorders: Yes Hearing Impairment: Hard of Hearing, Bilateral Hearing Aide Cancer History of Cancer: No Psychosocial History of Psychiatric Problem: No Integumentary History of Skin or Integumenta: No Blood Transfusions History of Blood Disorders: No Adverse Reaction to a Blood Tr: No Reviewed Nursing Assessment Reviewed/Agree w Nursing PMH: Yes Family Medical History Significant Family History: No Pertinent Family Hx, Hypertension Family Medial History: Colon cancer 19 FATHER FH: heart disease 19 MOTHER Review of Systems Constitutional: no symptoms reported EENTM: no symptoms reported Respiratory: no symptoms reported Cardiovascular: no symptoms reported Gastrointestinal: see HPI Genitourinary: no symptoms reported Musculoskeletal: no symptoms reported Skin: no symptoms reported Psychiatric/Neurological: No Symptoms Reported Physical Exam Vital Signs Vital Signs - First Documented 06/22/18 17:00 Temp 98.2 Pulse 92 Resp 18 B/P (MAP) 163/79 (107) Pulse Ox 96 O2 Delivery Room Air Capillary Refill : Less Than 3 Seconds Height, Weight, BMI Height: 5'2.00" Weight: 120lbs. 6.0oz. 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-XII Norm as Tested Skin: Normal Color Lymphatic: No Adenopathy Data Review Labs Laboratory Tests 06/22/18 17:15: White Blood Count 8.2, Red Blood Count 4.81, Hemoglobin 14.7, Hematocrit 45, Mean Corpuscular Volume 93, Mean Corpuscular Hemoglobin 31, Mean Corpuscular Hemoglobin Concent 33, Red Cell Distribution Width 13.9, Platelet Count 325, Mean Platelet Volume 9.7, Neutrophils (%) (Auto) 69, Lymphocytes (%) (Auto) 23, Monocytes (%) (Auto) 7, Eosinophils (%) (Auto) 1, Basophils (%) (Auto) 0, Neutrophils # (Auto) 5.6, Lymphocytes # (Auto) 1.9, Monocytes # (Auto) 0.6, Eosinophils # (Auto) 0.1, Basophils # (Auto) 0.0, Prothrombin Time 12.7, INR Comment 0.9, Activated Partial Thromboplast Time 31, Sodium Level 140, Potassium Level 3.9, Chloride Level 104, Carbon Dioxide Level 23, Anion Gap 13, Blood Urea Nitrogen 9, Creatinine 0.80, Estimat Glomerular Filtration Rate > 60 , BUN/Creatinine Ratio 11, Glucose Level 105, Calcium Level 11.0H, Corrected Calcium , Magnesium Level 2.2, Total Bilirubin 0.7, Aspartate Amino Transf (AST/ SGOT) 21, Alanine Aminotransferase (ALT/SGPT) 15, Alkaline Phosphatase 103, Total Protein 8.0, Albumin 4.6H, Amylase Level 73, Lipase 11 06/23/18 04:30: White Blood Count 7.3, Red Blood Count 4.41, Hemoglobin 13.6, Hematocrit 41, Mean Corpuscular Volume 94, Mean Corpuscular Hemoglobin 31, Mean Corpuscular Hemoglobin Concent 33, Red Cell Distribution Width 13.8, Platelet Count 276, Mean Platelet Volume 9.6, Neutrophils (%) (Auto) 74, Lymphocytes (%) (Auto) 17, Monocytes (%) (Auto) 8, Eosinophils (%) (Auto) 1, Basophils (%) (Auto) 0, Neutrophils # (Auto) 5.4, Lymphocytes # (Auto) 1.2, Monocytes # (Auto) 0.6, Eosinophils # (Auto) 0.1, Basophils # (Auto) 0.0, Sodium Level 137, Potassium Level 4.2, Chloride Level 105, Carbon Dioxide Level 22, Anion Gap 10, Blood Urea Nitrogen 8, Creatinine 0.76, Estimat Glomerular Filtration Rate > 60, BUN/ Creatinine Ratio 11, Glucose Level 140H, Calcium Level 9.6, Corrected Calcium 9.7, Total Bilirubin 0.8, Aspartate Amino Transf (AST/SGOT) 16, Alanine Aminotransferase (ALT/SGPT) 12, Alkaline Phosphatase 91, Total Protein 6.4, Albumin 3.9 Assessment/Plan Assessment/Plan Admission Diagonsis Abdominal pain with possible small bowel obstruction Admission Status: Inpatient Order (span 2 midnights) Reason for Inpatient Admission: Patient with partial to complete bowel obstruction, needs further imaging and close monitoring in case needs surgical intervention. Assessment/Plan Abdominal pain epigastric partial small bowel obstruction Nausea Patient with conservative measures NG tube nPO iv fluids getting sbft if moves through and passing flatus/bm will remove and start on clears. continue conservative measures for now. Clinical Quality Measures DVT/VTE Risk/Contraindication: Risk Factor Score Per Nursin RFS Level Per Nursing on Admit: 1=Low/No VTE PPX RAMAN HODGSON DO June 23, 2018 10:25
--- NOTE | 2018-06-23 10:46 | Consultation-Hospitalist ---
HPI History of Present Illness: HPI/Chief Complaint Chief complaint: Small bowel obstruction History of present illness: This is a 77-year-old white female clinic patient of mine with history of hypertension and hyperlipidemia and recurrent small bowel obstructions status post surgical resolution 1 time remotely who had been doing very well since her last small bowel obstruction in February who presented to the ER with abdominal pain and nausea and vomiting consistent with the same symptoms that she had before with a small bowel obstruction. She was found to have small bowel obstruction confirmed on CT scan of Dr. Hodgson was consulted and she was admitted placed on IV fluid supportive care and time medics and NG tube. She did just undergo a Gastrografin study it appears that the obstruction is now resolved but will follow-up on the formal results and remove NG tube and advance to clear liquid diet per Dr. Hodgson. She is currently without abdominal pain she is passing gas and overall feels much better. Source: patient Exam Limitations: no limitations Date Seen 06/23/18 Attending Physician Arron Hodgson DO PCP Estefania Wade DO Referring Physician Date of Admission Jun 22, 2018 at 19:33 Home Medications & Allergies Home Medications Reviewed patient Home Medication Reconciliation performed by pharmacy medication reconciliations truck engine technician and/or nursing. Patients Allergies have been reviewed. Allergies Allergies Coded Allergies Penicillins (Verified Allergy, Severe, RASH, 06/02/17) Past Agmitep-Gbpwhh-Zvcwbd Hx Past Med/Social Hx: Reviewed Nursing Past Med/Soc Hx, Reviewed and Corrections made Patient Social History Marrital Status: single Employed/Student: retired Alcohol Use: Rarely Uses Recreational Drug Use: No Smoking Status: Never a Smoker 2nd Hand Smoke Exposure: No Recent Foreign Travel: No Contact w/other who traveled: No Recent Hopitalizations: No Recent Infectious Disease Expo: No Immunizations Up To Date Tetanus Booster (TDap): Unknown Date of Pneumonia Vaccine: May 24, 2016 Date of Influenza Vaccine: Nov 30, 2017 Seasonal Allergies Seasonal Allergies: No Past Medical History Surgeries: Abdominal, Bowel Surgery Currently Using CPAP: No Currently Using BIPAP: No Cardiac: High Cholesterol, Hypertension Sexually Transmitted Disease: No HIV/AIDS: No Female Reproductive Disorders: Denies Menopausal Gastrointestinal: Obstructive Bowel, Chronic Constipation, Hiatal Hernia Hearing Impairment: Hard of Hearing, Bilateral Hearing Aide History of Blood Disorders: No Adverse Reaction to Blood [place]: No Family History Colon cancer 19 FATHER FH: heart disease 19 MOTHER No Pertinent Family Hx, Hypertension Review of Systems Constitutional: see HPI EENTM: no symptoms reported Respiratory: no symptoms reported Cardiovascular: no symptoms reported Gastrointestinal: abdominal pain, loss of appetite, nausea, vomiting Genitourinary: no symptoms reported Musculoskeletal: no symptoms reported Skin: no symptoms reported Psychiatric/Neurological: No Symptoms Reported All Other Systems Reviewed Negative Unless Noted: Yes Physical Exam Physical Exam Vital Signs Vital Signs - First Documented 06/22/18 17:00 Temp 98.2 Pulse 92 Resp 18 B/P (MAP) 163/79 (107) Pulse Ox 96 O2 Delivery Room Air Capillary Refill : Less Than 3 Seconds Height, Weight, BMI Height: 5'2.00" Weight: 120lbs. 6.0oz. 54.533534ki; 23.8 BMI Method:Stated General Appearance: No Apparent Distress, WD/WN, Chronically ill, Thin Eyes: Bilateral Eye Normal Inspection, Bilateral Eye EOMI HEENT: PERRL/EOMI, Normal ENT Inspection, Other (Hearing loss is severe and chronic even with hearing aids intact) Neck: Full Range of Motion, Normal Inspection, Non Tender, Supple Respiratory: Chest Non Tender, Lungs Clear, Normal Breath Sounds, No Accessory Muscle Use, No Respiratory Distress Cardiovascular: Regular Rate, Rhythm, No Edema Gastrointestinal: Normal Bowel Sounds, Non Tender, Soft Rectal: Deferred Back: Normal Inspection Extremity: Normal Inspection, Normal Range of Motion, Non Tender Neurologic/Psychiatric: Alert, No Motor/Sensory Deficits, Normal Mood/Affect, room attendant II-XII Norm as Tested Skin: Normal Color Lymphatic: No Adenopathy Results Results/Procedures Labs Laboratory Tests 06/22/18 17:15 06/23/18 04:30 Patient resulted labs reviewed. Assessment/Plan Assessment and Plan Assess & Plan/Chief Complaint Assessment: Small bowel obstruction recurrent type Hypertension Hyperlipidemia Severe presbycusis Plan: NG tube removal per Dr. Hodgson Gastrografin review results Advance diet if okay with Dr. Hodgson Home meds Diagnosis/Problems Diagnosis/Problems (1) Small bowel obstruction Status: Acute (2) Hiatal hernia Status: Chronic (3) Hypertension Status: Chronic Qualifiers: Hypertension type: essential hypertension Qualified Codes: I10 - Essential (primary) hypertension (4) Presbycusis Status: Chronic Qualifiers: Laterality: bilateral Qualified Codes: H91.13 - Presbycusis, bilateral Clinical Quality Measures DVT/VTE Risk/Contraindication: Risk Factor Score Per Nursin RFS Level Per Nursing on Admit: 1=Low/No VTE PPX ESTEFANIA WADE DO June 23, 2018 10:46
[2018-06-23] MEDS ORDERED: ACETAMINOPHEN 500 MG TAB (TYLENOL) PO PRN ×2 (11:45→12:30)
[2018-06-23 12:00] VITALS: BP 171/81
[2018-06-23] MEDS ORDERED: ACETAMINOPHEN 325 MG TABLET PO PRN (15:15)
[2018-06-23 15:58] VITALS: BP 159/72
[2018-06-23 19:25] VITALS: BP 159/67
[2018-06-23] MEDS ORDERED: ASPIRIN E.C. 81 MG (ECOTRIN) TAB PO SCH (21:00)
[2018-06-24 00:30] VITALS: BP 153/66
[2018-06-24 04:40] VITALS: BP 155/83
[2018-06-24] MEDS: D5 1/2 NS W/KCL 20 MEQ/L 1,000 ML IV SCH (06:33)
[2018-06-24 08:00] VITALS: BP 127/65
[2018-06-24] MEDS ORDERED: meTOproloL SUCCINATE 50 MG (TOPROL XL) TAB PO SCH (09:00)
[2018-06-24] MEDS ORDERED: PANTOPRAZOLE 20 MG TABLET (PROTONIX) PO SCH (09:00)
--- NOTE | 2018-06-24 10:17 | Progress Note-Hospitalist ---
Subjective HPI/CC On Admission Date Seen by Provider: June 24, 2018 Time Seen by Provider: 09:45 Chief complaint: Small bowel obstruction History of present illness: This is a 77-year-old white female clinic patient of mine with history of hypertension and hyperlipidemia and recurrent small bowel obstructions status post surgical resolution 1 time remotely who had been doing very well since her last small bowel obstruction in February who presented to the ER with abdominal pain and nausea and vomiting consistent with the same symptoms that she had before with a small bowel obstruction. She was found to have small bowel obstruction confirmed on CT scan of Dr. Hodgson was consulted and she was admitted placed on IV fluid supportive care and time medics and NG tube. She did just undergo a Gastrografin study it appears that the obstruction is now resolved but will follow-up on the formal results and remove NG tube and advance to clear liquid diet per Dr. Hodgson. She is currently without abdominal pain she is passing gas and overall feels much better. Subjective/Events-last exam Patient doing much better No more abdominal pain Tolerating liquids Remains frustrated with recurrent bowel obstructions Denies any nausea Awaiting Dr. Hodgson for approval for discharge Review of Systems General: Fatigue Objective Exam Vital Signs Vital Signs Date Time Temp Pulse Resp B/P (MAP) Pulse Ox O2 Delivery O2 Flow Rate FiO2 06/24/18 08:00 97.4 70 18 127/65 (85) 97 Room Air Capillary Refill : Less Than 3 Seconds General Appearance: No Apparent Distress HEENT: PERRL/EOMI, Normal ENT Inspection, Pharynx Normal Neck: Full Range of Motion, Normal Inspection, Non Tender, Supple Respiratory: Chest Non Tender, Lungs Clear, Normal Breath Sounds, No Accessory Muscle Use, No Respiratory Distress Cardiovascular: Regular Rate, Rhythm, No Edema Gastrointestinal: Non Tender, Soft Rectal: Deferred Back: Normal Inspection, No CVA Tenderness Extremity: Normal Inspection, Normal Range of Motion, Non Tender Neurologic/Psychiatric: Alert, No Motor/Sensory Deficits, Normal Mood/Affect, resource management 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 Assessment/Plan Assessment and Plan Assess & Plan/Chief Complaint Assessment: Small bowel obstruction recurrent type Hypertension Hyperlipidemia Severe presbycusis Plan: Advance diet if okay with Dr. Hodgson Home today? Diagnosis/Problems Diagnosis/Problems (1) Small bowel obstruction Status: Acute (2) Hiatal hernia Status: Chronic (3) Hypertension Status: Chronic Qualifiers: Hypertension type: essential hypertension Qualified Codes: I10 - Essential (primary) hypertension (4) Presbycusis Status: Chronic Qualifiers: Laterality: bilateral Qualified Codes: H91.13 - Presbycusis, bilateral Clinical Quality Measures DVT/VTE Risk/Contraindication: Risk Factor Score Per Nursin RFS Level Per Nursing on Admit: 1=Low/No VTE PPX CORINA MOTA DO June 24, 2018 10:17
--- NOTE | 2018-06-24 11:34 | Progress Note ---
Subjective Date Seen by a Provider: June 24, 2018 Time Seen by a Provider: 11:27 Subjective/Events-last exam Patient doing well. Tolerating diet. Denies n/v fever sweats chills shortness of breath or chest pain . no abdominal pain. wanting to go home. Objective Exam Vital Signs Date Time Temp Pulse Resp B/P (MAP) Pulse Ox O2 Delivery O2 Flow Rate FiO2 06/24/18 08:00 97.4 70 18 127/65 (85) 97 Room Air 06/24/18 08:00 Room Air 06/24/18 04:40 98.2 59 19 155/83 (107) 96 Room Air 06/24/18 00:30 98.0 59 21 153/66 (95) 95 Room Air 06/23/18 20:00 Room Air 06/23/18 19:25 98.8 75 20 159/67 (97) 98 Room Air 06/23/18 15:58 98.2 75 18 159/72 (101) 95 Room Air 06/23/18 12:00 98.1 64 18 171/81 (111) 96 Room Air I & O 06/24/18 07:00 Intake Total 2520 ml Balance 2520 ml Capillary Refill : Less Than 3 Seconds General Appearance: No Apparent Distress HEENT: PERRL/EOMI, Normal ENT Inspection, Pharynx Normal Neck: Full Range of Motion, Normal Inspection, Non Tender, Supple Respiratory: Chest Non Tender, Lungs Clear, Normal Breath Sounds, No Accessory Muscle Use, No Respiratory Distress Cardiovascular: Regular Rate, Rhythm, No Edema Gastrointestinal: normal bowel sounds, non tender, soft, no organomegaly, no pulsatile mass; No distended, No guarding, No rebound Extremity: Normal Inspection, Normal Range of Motion, Non Tender Neurologic/Psychiatric: Alert, Oriented x3, No Motor/Sensory Deficits, Normal Mood/Affect, cleaner wall II-XII Norm as Tested Skin: Normal Color Lymphatic: No Adenopathy Assessment/Plan Assessment/Plan Assessment/Plan Abdominal pain epigastric-resolved partial small bowel obstruction-resolved Nausea-resolved sbft without evidence of obstruction tolerating diet and having bm/flatus okay to advance diet slowly and dc home. Clinical Quality Measures DVT/VTE Risk/Contraindication: Risk Factor Score Per Nursin RFS Level Per Nursing on Admit: 1=Low/No VTE PPX RAMAN ADKINS DO June 24, 2018 11:34
--- NOTE | 2018-06-24 11:40 | Discharge Inst-Simple/Standard ---
Discharge Inst-Standard Patient Instructions/Follow Up Plan of Care/Instructions/FU: [address] Hodg[address] Wade Activity as Tolerated: Yes Discharge Diet: Soft Diet (advance as tolerates) Other Inst to Patient Symptoms to Report: Appetite Changes, Extremity Discoloration, Numbness/Tingling, Swelling Increased , Bleeding Excessive, Eyesight Changes, Pain Increased, Urine Color Change, Constipation(Persistent), Fever over 101 degree F, Pain/Pressure in chest, Urinating Difficulty, Cough Up/Vomit Blood, Heart Beat Irreg/Pounding, Pain/ Pressure in jaw, Vaginal Bleeding Increase, Cramps in feet or legs, Lightheadedness, Pain/Pressure in shoulder, Diarrhea(Persistent), Memory Changes Suddenly, Questions/Concerns, Weight gain consecutive days, Dizziness/ Fainting, Nausea/Vomiting, Shortness of Breath, Weight gain over 2 pounds If questions or concerns contact your physician Or seek help at emergency department. RAMAN HODGSON DO June 24, 2018 11:40
[2018-06-24 13:35] VITALS: BP 127/65
--- NOTE | 2018-06-25 05:19 | DISCHARGE SUMMARY ---
DATE OF SERVICE: ADMITTING DIAGNOSES: Small-bowel obstruction, hiatal hernia, hypertension, presbycusis, abdominal pain and epigastric nausea. DISCHARGE DIAGNOSES: Small-bowel obstruction, hiatal hernia, hypertension, presbycusis, abdominal pain and epigastric nausea. HOSPITAL COURSE: The patient is a 77-year-old female with history of partial small bowel obstructions. The patient presented to the Emergency Department on 06/22/2018 and had a workup, was having epigastric abdominal pain, nausea and vomiting. A CT scan was demonstrating partial and complete small-bowel obstruction of the mid distal small bowel with localized ileus colon: Minimal biliary sludge, no evidence of cholecystitis and trace perihepatic ascites and trace amount of free pelvic fluid, large hiatal hernia. The patient was admitted with NG tube placed for conservative measures for treatment of partial small-bowel obstruction. The patient had partial small-bowel obstruction, which did not demonstrate any evidence of bowel obstruction. The NG tube was then withdrawn. The patient was started on diet. The patient started having flatus, having bowel movements. The patient was doing well on today's date of discharge. She is not having any abdominal pain. She was having flatus and bowel movements. She is tolerating liquids. The patient to slowly advance diet. The patient has followup appointments scheduled for Dr. Hodgson in [address] Wade in 2 weeks. Please see hospital discharge information for medications. The patient in agreement with plan. DISCHARGE MEDICATIONS: The patient discharged on 06/24/2018. Job ID: [id number] DocumentID: [id number] Dictated Date: 06/24/2018 11:49:58 Economics Analyst Date: 06/25/2018 05:18:58 Dictated By: RAMAN HODGSON DO
== END 2018-06-24 13:40 | disposition home or self-care (01) | DRG 390 ==
LOC: EDUNIT# 16:58 → ER 16:59 → 4TH 19:33
PROVIDERS: ADMIT Surgery; ATTEND Surgery
PROC: 0D9670Z Drainage of Stomach with Drainage Device, Via Natural or Artificial Opening (ICD-10-PCS; principal; 2018-06-22)
DX: K56.690 Other partial intestinal obstruction (principal); K83.8 Other specified diseases of biliary tract; K44.9 Diaphragmatic hernia without obstruction or gangrene; K59.09 Other constipation; I10 Essential (primary) hypertension; E78.00 Pure hypercholesterolemia, unspecified; H91.13 Presbycusis, bilateral; Z97.4 Presence of external hearing-aid
CPT/HCPCS: 36415; 71045; 74022; 74176; 74250; 80053; 82150; 83690; 83735; 85025; 85610; 85730; 96361; 96374; 96375

== ENCOUNTER 2018-07-08 15:51 | Inpatient (IN) | payer MEDICARE ==
[~2018-07-08] VITALS: Ht 157.5 cm; Wt 54.6 kg
[2018-07-08] MEDS ORDERED: ONDANSETRON 4 MG/2 ML (SDV) Z0FRAN IVP PRN (16:00)
[2018-07-08] MEDS ORDERED: ALPRAZolam 0.25 MG (XANAX) TAB PO PRN (16:00)
[2018-07-08] MEDS ORDERED: ACETAMINOPHEN 500 MG TAB (TYLENOL) PO PRN (16:00)
[2018-07-08] MEDS ORDERED: CALCIUM CARBONATE 500 MG (TUMS) TAB.CHEW PO PRN (16:00)
[2018-07-08] MEDS ORDERED: diphenhydrAMINE 25 MG TAB (BENADRYL) PO PRN (16:00)
[2018-07-08] MEDS ORDERED: MELATONIN 3 MG TABLET PO PRN (16:00)
--- NOTE | 2018-07-08 16:00 | NUR ---
DEREK ACOSTA admitted to room 409-1, with a DIRECT admitting diagnosis of SBO, on 07/08/18 fromDR [facility]S OFFICE via AMB, accompanied by .DEREK ACOSTA introduced to surroundings, call light, bed controls, phone, TV, temperature control, lights, meal times, smoking policy, visitor policy, side rail policy, bathrooms and showers. Patient Rights given to patient in the handbook. DEREK ACOSTA verbalizes understanding that [facility] is not responsible for the loss or damage to any personal effects or valuables that are kept in the patients posession during their hospitalization. The following Patient Care Plans were discussed with the PT: Discharge Planning, NUT<BODY REQUIREMENT, CONSTIPATION, [place] VL DEFICIT, AND PAIN. DEREK ACOSTA verbalizes understanding of Interdisciplinary Patient Education. Patient and/or family were informed about the Rapid Response Team and its purpose.
[2018-07-08 16:05] VITALS: BP 123/80
[2018-07-08] MEDS ORDERED: CATHETER FLUSH 10 ML SYR IV PRN (16:30)
[2018-07-08] MEDS: AA 4.25% W/LYTES IN D5W IV SOL 1,000 ML IV SCH (16:49)
--- NOTE | 2018-07-08 17:06 | Consultation (Surgery) ---
History of Present Illness History of Present Illness Patient Consulted On(mickie/time) 07/08/18 17:01 Date Seen by Provider: July 08, 2018 Time Seen by Provider: 16:45 Reason for Visit: SBO History of Present Illness Consult requested by Dr Wade for evaluation and management of SBO 77 y/o F with recent hospitalizations for small bowel obstruction is a direct admit to the floors for management of a SBO. Patient was recently discharged last week for the same problem. She states that she continues to experience abdominal pain, with increased bloating, distension and discomfort. She was able to have a small BM this morning, has been able to pass gas at times throughout the day, but still complains of a significant amount of pain. She localizes the pain to the midepigastric area, is colicky in nature, non- radiating, and 10/10 in severity. She was able to eat breakfast this morning, however it caused more discomfort. She also endorses some nausea, however she has not needed to vomit. She denies CARR, CP, SOB, fever, chills, V/D, and weakness. Allergies and Home Medications Allergies Coded Allergies: Penicillins (Verified Allergy, Severe, RASH, 06/02/17) Home Medications Acetaminophen 500 Mg Tablet, 500 MG PO Q4H PRN for PAIN-MILD, (Reported) Aspirin 81 Mg Tablet.dr, 81 MG PO HS, (Reported) Ibuprofen 200 Mg Tablet, 200 MG PO Q6H PRN for BACK PAIN, (Reported) Losartan Potassium 50 Mg Tablet, 50 MG PO DAILY, (Reported) Metoprolol Succinate 50 Mg Tab.er.24h, 50 MG PO DAILY, (Reported) Omeprazole 20 Mg Tablet.dr, 20 MG PO DAILY, (Reported) Pravastatin Sodium 40 Mg Tablet, 40 MG PO HS, (Reported) Ubidecarenone/Vit E/Vit E Mix 1 Each Capsule, 100 MG PO HS, (Reported) Patient Home Medication List Home Medication List Reviewed: Yes Past Xtcsjoi-Lpgcdw-Hbgatw Hx Patient Social History 2nd Hand Smoke Exposure: No Recent Foreign Travel: No Contact w/Someone Who Travel: No Recent Hopitalizations: No Immunizations Up To Date Tetanus Booster (TDap): Unknown Date of Pneumonia Vaccine: May 24, 2016 Date of Influenza Vaccine: Nov 30, 2017 Seasonal Allergies Seasonal Allergies: No Surgeries History of Surgeries: Yes (PREVIOUS SURGERY FOR BOWEL OBSTRUCTION) Surgeries: Abdominal, Bowel Surgery Respiratory History of Respiratory Disorde: No Cardiovascular History of Cardiac Disorders: Yes Cardiac Disorders: High Cholesterol, Hypertension Neurological History of Neurological Disord: No Reproductive System Sexually Transmitted Disease: No HIV/AIDS: No Female Reproductive Disorders: Denies 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 Genitourinary History of Genitourinary Disor: No Gastrointestinal History of Gastrointestinal Di: Yes Gastrointestinal Disorders: Obstructive Bowel, Chronic Constipation, Hiatal Hernia Musculoskeletal History of Musculoskeletal Dis: No Endocrine History of Endocrine Disorders: No HEENT History of HEENT Disorders: Yes Hearing Impairment: Hard of Hearing, Bilateral Hearing Aide Cancer History of Cancer: No Psychosocial History of Psychiatric Problem: No Integumentary History of Skin or Integumenta: No Blood Transfusions History of Blood Disorders: No Adverse Reaction to a Blood Tr: No Reviewed Nursing Assessment Reviewed/Agree w Nursing PMH: Yes Family Medical History Significant Family History: No Pertinent Family Hx, Hypertension Family Medial History: Colon cancer 19 FATHER FH: heart disease 19 MOTHER Review of Systems-General Constitutional: weight loss (She has had some recent weight loss secondary to anorexia due to fear of pain) EENTM: hearing loss Respiratory: no symptoms reported Cardiovascular: no symptoms reported Gastrointestinal: abdominal pain (Epigastric ), constipation, nausea Genitourinary: no symptoms reported Musculoskeletal: no symptoms reported Skin: no symptoms reported Psychiatric/Neurological: No Symptoms Reported Physical Exam-General Problems Physical Exam Vital Signs Capillary Refill : General Appearance: WD/WN, no apparent distress HEENT: normal ENT inspection Neck: non-tender, full range of motion Respiratory: chest non-tender, lungs clear Cardiovascular: regular rate, rhythm Gastrointestinal: non tender, soft, distended Rectal: deferred Back: normal inspection Extremities: normal range of motion, non-tender Neurologic/Psychiatric: manager asset II-XII nml as tested, alert, normal mood/affect, oriented x 3 Skin: normal color, warm/dry Lymphatic: no adenopathy Assessment/Plan Assessment/Plan Assessment/Plan SBO - Exploratory Laparotomy scheduled for tomorrow - NPO - Clindamycin to be given tomorrow - CBC in RAMAN ADKINS DO July 08, 2018 17:06
[2018-07-08 17:27] VITALS: BP 123/80
--- NOTE | 2018-07-08 17:57 | Diagnostic Imaging Report ---
INDICATION: Abdominal distention. COMPARISON: 07/03/2018. FINDINGS: There are a few gas-filled but nondilated loops of bowel in the upper abdomen. Colonic gas is present. A small amount of air is present in the stomach. Enteric tube has been removed. No features of free intraperitoneal air, though assessment is limited on supine imaging. Stable degenerative changes in the lumbar spine. Scattered pelvic phleboliths are also unchanged. IMPRESSION: Nonobstructive, but nonspecific bowel gas pattern. Dictated by: Dictated on workstation # [id number]
[2018-07-08] MEDS: fentaNYL INJECTION 100 MCG/2 ML AMP IVP PRN (18:25)
--- NOTE | 2018-07-08 18:42 | NUR ---
MRSA SWABS WERE DONE-- CONSENT FOR EXPLORATORY WAS SIGNED AND IN CHART -- ADD ON FAXED AND GIVEN TO FIELD MARKETING LEAD
[2018-07-08 19:51] VITALS: BP 140/67
[2018-07-08 21:37] LABS: BILIRUBIN,URINE NEGATIVE (NEGATIVE); CLARITY,URINE CLEAR; COLOR,URINE YELLOW; GLUCOSE, URINE (UA) NEGATIVE (NEGATIVE); KETONES,URINE NEGATIVE (NEGATIVE); LEUKOCYTE ESTERASE ,URINE NEGATIVE (NEGATIVE); NITRITE,URINE NEGATIVE (NEGATIVE); PH,URINE 7 (5-9); PROTEIN,URINE NEGATIVE (NEGATIVE); UROBILINOGEN,URINE NORMAL (NORMAL)
[2018-07-08 21:45] LABS: AMORPHOUS SEDIMENT,UR FEW AMOR PHOSPHATE /LPF; BACTERIA,URINE NEGATIVE /HPF; RBC,URINE 0-2 /HPF; WBC,URINE RARE /HPF
[2018-07-09] VITALS (13 sets, daily range): BP systolic 128–177; BP diastolic 62–85
[2018-07-09] MEDS: AA 4.25% W/LYTES IN D5W IV SOL 1,000 ML IV SCH ×2 (00:55→09:00)
[2018-07-09 06:14] LABS: BASOPHILS % (AUTO) 0 % (0-10); EOSINOPHILS # (AUTO) 0.2 10^3/uL (0.0-0.3); EOSINOPHILS % (AUTO) 2 % (0-10); HEMATOCRIT 39 % (35-52); HEMOGLOBIN 12.8 G/DL (11.5-16.0); LYMPHOCYTES # (AUTO) 1.1 X 10^3 (1.0-4.0); LYMPHOCYTES % (AUTO) 15 % (12-44); MEAN CORPUSCULAR HEMOGLOBIN 31 PG (25-34); MEAN CORPUSCULAR HGB CONC 33 G/DL (32-36); MEAN CORPUSCULAR VOLUME 94 FL (80-99); MEAN PLATELET VOLUME 9.7 FL (7.4-10.4); MONOCYTES # (AUTO) 0.7 X 10^3 (0.0-1.0); MONOCYTES % (AUTO) 9 % (0-12); NEUTROPHILS # (AUTO) 5.6 X 10^3 (1.8-7.8); NEUTROPHILS % (AUTO) 74 % (42-75); PLATELET COUNT 296 10^3/uL (130-400); RED CELL DISTRIBUTION WIDTH 13.7 % (10.0-14.5); WHITE BLOOD COUNT 7.6 10^3/uL (4.3-11.0)
[2018-07-09 06:37] LABS: ALANINE AMINOTRANSFERASE 9 U/L (0-55); ALBUMIN 3.6 GM/DL (3.2-4.5); ALKALINE PHOSPHATASE 76 U/L (40-136); AMYLASE 56 U/L (25-125); BILIRUBIN,TOTAL 0.5 MG/DL (0.1-1.0); BUN/CREATININE RATIO 30; CALCIUM 9.4 MG/DL (8.5-10.1); CARBON DIOXIDE 21 MMOL/L (21-32); CHLORIDE 107 MMOL/L (98-107); GFR ESTIMATED > 60; GLUCOSE 100 MG/DL (70-105); LIPASE 17 U/L (8-78); POTASSIUM 4.5 MMOL/L (3.6-5.0); SODIUM 139 MMOL/L (135-145); TOTAL PROTEIN 5.9 GM/DL (6.4-8.2)
--- NOTE | 2018-07-09 08:52 | Progress Note ---
Subjective Date Seen by a Provider: July 09, 2018 Time Seen by a Provider: 08:20 Subjective/Events-last exam Patient seen and examined at bedside this morning with no acute event reported overnight. She continues to endorse generalized lower abdominal pain and feeling distended. She was able to have a small BM this morning and has been able to pass gas, but still feels distention and pain. She denies CARR, CP, SOB, N /V/D, weakness, fever and chills. Objective Exam Vital Signs Date Time Temp Pulse Resp B/P (MAP) Pulse Ox O2 Delivery O2 Flow Rate FiO2 07/09/18 08:00 97.5 66 18 132/67 (88) 97 Room Air 07/09/18 04:00 98.8 61 18 157/78 (104) 93 Room Air 07/09/18 00:30 97.6 62 18 128/75 (92) 96 Room Air 07/08/18 20:00 Room Air 07/08/18 19:51 97.6 60 18 140/67 (91) 97 Room Air 07/08/18 19:51 97.6 60 18 140/67 (91) 97 Room Air 07/08/18 18:55 97.8 07/08/18 17:27 97.8 68 20 123/80 96 Room Air 07/08/18 16:05 97.8 68 20 123/80 (94) 96 Room Air 07/08/18 15:35 96 Room Air I & O 07/09/18 06:59 Intake Total 1000 ml Output Total 1300 ml Balance -300 ml Capillary Refill : General Appearance: No Apparent Distress, WD/WN HEENT: PERRL/EOMI, Normal ENT Inspection, Other (B/L Hearing Aids) Neck: Full Range of Motion, Normal Inspection Respiratory: Chest Non Tender, Normal Breath Sounds Cardiovascular: Regular Rate, Rhythm Gastrointestinal: non tender, soft, distended Extremity: Normal Capillary Refill, Normal Inspection Neurologic/Psychiatric: Alert, Oriented x3 Skin: Normal Color, Warm/Dry Lymphatic: No Adenopathy Results Lab Laboratory Tests 07/08/18 21:25: Urine Color YELLOW, Urine Clarity CLEAR, Urine pH 7, Urine Specific [place] 1.010L, Urine Protein NEGATIVE, Urine Glucose (UA) NEGATIVE, Urine Ketones NEGATIVE, Urine Nitrite NEGATIVE, Urine Bilirubin NEGATIVE, Urine Urobilinogen NORMAL, Urine Leukocyte Esterase NEGATIVE, Urine RBC (Auto) 2+H, Urine RBC 0-2, Urine WBC RARE, Urine Crystals PRESENTH, Urine Amorphous Sediment FEW FORTINO PHOSPHATEH, Urine Bacteria NEGATIVE, Urine Casts NONE, Urine Mucus NEGATIVE, Urine Culture Indicated NO 07/09/18 05:44: White Blood Count 7.6, Red Blood Count 4.16L, Hemoglobin 12.8, Hematocrit 39, Mean Corpuscular Volume 94, Mean Corpuscular Hemoglobin 31, Mean Corpuscular Hemoglobin Concent 33, Red Cell Distribution Width 13.7, Platelet Count 296, Mean Platelet Volume 9.7, Neutrophils (%) (Auto) 74, Lymphocytes (%) (Auto) 15, Monocytes (%) (Auto) 9, Eosinophils (%) (Auto) 2, Basophils (%) (Auto) 0, Neutrophils # (Auto) 5.6, Lymphocytes # (Auto) 1.1, Monocytes # (Auto) 0.7, Eosinophils # (Auto) 0.2, Basophils # (Auto) 0.0, Sodium Level 139, Potassium Level 4.5, Chloride Level 107, Carbon Dioxide Level 21, Anion Gap 11, Blood Urea Nitrogen 21H, Creatinine 0.70, Estimat Glomerular Filtration Rate > 60, BUN /Creatinine Ratio 30, Glucose Level 100, Calcium Level 9.4, Corrected Calcium 9.7, Total Bilirubin 0.5, Aspartate Amino Transf (AST/SGOT) 15, Alanine Aminotransferase (ALT/SGPT) 9, Alkaline Phosphatase 76, Total Protein 5.9L, Albumin 3.6, Amylase Level 56, Lipase 17 Assessment/Plan Assessment/Plan Assessment/Plan SBO - Exploratory Laparotomy scheduled for today - NPO - Clindamycin to be given prior to procedure Clinical Quality Measures DVT/VTE Risk/Contraindication: Risk Factor Score Per Nursin RFS Level Per Nursing on Admit: 2=Moderate RAMAN ADKINS DO July 09, 2018 08:52
--- NOTE | 2018-07-09 10:01 | History & Physical-Hospitalist ---
History of Present Illness HPI/Chief Complaint CC: SBO HPI: This is a 77yoWF clinic patient of mine who presented to my office for a hospital f/u and reported severe pain and nausea since DC after conservative treatment for the 2nd time for SBO. She has surgery for SBO 4 yrs ago. Patient has lost 10# because she is scared to eat and every time she eats she has sto mach pain. Miralax has been maintained every day and her bowels have been moving ok for the little she has been eating. Dr Hodsgon will take her to surgery today for exploratory. Source: patient, RN/MD, old records Exam Limitations: no limitations Date Seen 07/09/18 Time Seen by a Provider: 09:30 Attending Physician Estefania Wade DO PCP Estefania Wade DO Referring Physician Date of Admission July 08, 2018 at 16:00 Home Medications & Allergies Home Medications Reviewed patient Home Medication Reconciliation performed by pharmacy medication reconciliations surgical scrub technician and/or nursing. Patients Allergies have been reviewed. Allergies Allergies Coded Allergies Penicillins (Verified Allergy, Severe, RASH, 06/02/17) Past Iqmujyq-Gxwaza-Dflokp Hx Past Med/Social Hx: Reviewed Nursing Past Med/Soc Hx, Reviewed and Corrections made Patient Social History Marrital Status: single Employed/Student: retired Alcohol Use: Denies Use Recreational Drug Use: No Smoking Status: Never a Smoker 2nd Hand Smoke Exposure: No Physical Abuse Screen: No Sexual Abuse: No Recent Foreign Travel: No Contact w/other who traveled: No Recent Hopitalizations: No Recent Infectious Disease Expo: No Immunizations Up To Date Tetanus Booster (TDap): Unknown Date of Pneumonia Vaccine: May 24, 2016 Date of Influenza Vaccine: Nov 30, 2017 Seasonal Allergies Seasonal Allergies: No Past Medical History Surgeries: Abdominal, Bowel Surgery Currently Using CPAP: No Currently Using BIPAP: No Cardiac: High Cholesterol, Hypertension Sexually Transmitted Disease: No HIV/AIDS: No Female Reproductive Disorders: Denies Menopausal Gastrointestinal: Obstructive Bowel, Chronic Constipation, Hiatal Hernia Hearing Impairment: Hard of Hearing, Bilateral Hearing Aide History of Blood Disorders: No Adverse Reaction to Blood [place]: No Family History Colon cancer 19 FATHER FH: heart disease 19 MOTHER No Pertinent Family Hx, Hypertension Review of Systems Constitutional: see HPI, weight loss EENTM: no symptoms reported Respiratory: no symptoms reported Cardiovascular: no symptoms reported Gastrointestinal: abdominal pain, nausea Musculoskeletal: no symptoms reported Skin: no symptoms reported Psychiatric/Neurological: No Symptoms Reported All Other Systems Reviewed Negative Unless Noted: Yes Physical Exam Physical Exam Vital Signs Vital Signs - First Documented 07/08/18 07/08/18 15:35 16:05 Temp 97.8 Pulse 68 Resp 20 B/P (MAP) 123/80 (94) Pulse Ox 96 O2 Delivery Room Air Capillary Refill : Height, Weight, BMI Height: 5'2.00" Weight: 120lbs. 6.0oz. 54.257309fp; 22.0 BMI Method:Stated General Appearance: No Apparent Distress, WD/WN, Anxious, Chronically ill, Thin Eyes: Right Eye Normal Inspection, Right Eye PERRL HEENT: PERRL/EOMI, Normal ENT Inspection, Pharynx Normal, Moist Mucous Membranes Neck: Full Range of Motion, Normal Inspection, Non Tender Respiratory: Chest Non Tender, Lungs Clear, Normal Breath Sounds, No Accessory Muscle Use, No Respiratory Distress Cardiovascular: Regular Rate, Rhythm, No Edema, No Gallop, No JVD, No Murmur, Normal Peripheral Pulses Gastrointestinal: Normal Bowel Sounds, No Organomegaly, No Pulsatile Mass, Soft, Tenderness Back: Normal Inspection, No CVA Tenderness, No Vertebral Tenderness Extremity: Normal Capillary Refill, Normal Inspection, Normal Range of Motion, Non Tender, No Calf Tenderness, No Pedal Edema Neurologic/Psychiatric: Alert, Oriented x3, No Motor/Sensory Deficits, Normal Mood/Affect Skin: Normal Color, Warm/Dry Lymphatic: No Adenopathy Results Results/Procedures Labs Laboratory Tests 07/09/18 05:44 Patient resulted labs reviewed. 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 in need of exploratory today per Dr Hodgson 10 pound weight loss due to scared to eat due to abdominal pain Nausea HTN HLP [place] Plan: Exp lap Clinimix Admission Status: Inpatient Order (span 2 midnights) Reason for Inpatient Admission: Needs surgery Diagnosis/Problems Diagnosis/Problems (1) Small bowel obstruction Status: Acute (2) Hypertension Status: Chronic Qualifiers: Hypertension type: essential hypertension Qualified Codes: I10 - Essential (primary) hypertension (3) Presbycusis Status: Chronic Qualifiers: Laterality: bilateral Qualified Codes: H91.13 - Presbycusis, bilateral Clinical Quality Measures DVT/VTE Risk/Contraindication: Risk Factor Score Per Nursin RFS Level Per Nursing on Admit: 2=Moderate ESTEFANIA WADE DO July 09, 2018 10:01
--- NOTE | 2018-07-09 11:24 | NUR ---
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 Chaplain tuttle w/ pt.
[2018-07-09] MEDS ORDERED: DEXAMETHASONE 10 MG/ML (DECADRON) 1 ML VIAL ONE (11:46)
[2018-07-09] MEDS ORDERED: proPOfol 200 MG/20 ML (DIPRIVAN) VIAL IV ONE (11:46)
[2018-07-09] MEDS ORDERED: ONDANSETRON 4 MG/2 ML (SDV) Z0FRAN ONE (11:46)
[2018-07-09] MEDS ORDERED: ROCURONIUM 10 MG/ML 5 ML SYRINGE IV ONE (11:46)
[2018-07-09] MEDS ORDERED: BUPIVACAINE 0.5% 30 ML (SENSORCAINE) VIAL ONE (11:46)
[2018-07-09] MEDS ORDERED: NEOSTIGMINE 1 MG/ML 5 ML SYRINGE ONE (11:46)
[2018-07-09] MEDS ORDERED: GLYCOPYRROLATE 0.2 MG/ML (ROBINUL) 2 ML VIAL ONE (11:46)
[2018-07-09] MEDS ORDERED: LIDOCAINE PF 2% 5 ML (XYLOCAINE) VIAL ONE (11:46)
[2018-07-09] MEDS ORDERED: SEVOFLURANE (ULTANE) 15 ML INHAL SOLN ONE (11:46)
[2018-07-09] MEDS ORDERED: fentaNYL INJECTION 100 MCG/2 ML AMP ONE (11:46)
[2018-07-09] MEDS ORDERED: CLINDAMYCIN 600 MG/50 ML IVPB 50 ML IV NR (12:00)
--- NOTE | 2018-07-09 12:14 | NUR ---
[facility] HERE TO TRANSPORT PATIENT TO OR FOR PROCEDURE. PATIENT LEFT ROOM VIA HOSPITAL BED. VITAL SIGNS STABLE ON ROOM AIR. HEARING AIDS, GLASSES, DENTURES, AND JEWELRY REMOVED AND LOCKED IN DRAWER.
[2018-07-09] MEDS: LACTATED RINGERS 1,000 ML IV SCH ×2 (12:22→17:15)
[2018-07-09] MEDS ORDERED: HYDROmorphone 2 MG/ML VIAL (DILAUDID) IV ONE (14:00)
[2018-07-09] MEDS ORDERED: ONDANSETRON 4 MG/2 ML (SDV) Z0FRAN IVP PRN (14:00)
[2018-07-09] MEDS ORDERED: PHENYLEPHRINE 100 MCG/ML 10 ML (ANESTHESIA) SYR ONE (14:02)
[2018-07-09] MEDS ORDERED: ROPIVACAINE 5MG/ML 30ML VIAL ONE (14:03)
--- NOTE | 2018-07-09 14:03 | Progress Note-Post Operative ---
Post-Operative Progess Note Surgeon (s)/Child Welfare Counselor (s) Surgeon RAMAN ADKINS DO Child Welfare Counselor: Dr. 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
--- NOTE | 2018-07-09 14:50 | NUR ---
PATIENT BACK FROM PROCEDURE. TRANSPORTED VIA HOSPITAL BED ACCOMPANIED BY [facility]W[employer]. BEDSIDE REPORT RECEIVED. INCISION SITE INSPECTED AND PATIENT REPORTS PAIN IN ABDOMINAL INCISION AREA. ICE PACK PLACED ON ABDOMEN. BILATERAL SCDS ON. PATIENT IS STABLE ON ROOM AIR AT THIS TIME.
[2018-07-09] MEDS: fentaNYL INJECTION 100 MCG/2 ML AMP IVP PRN ×2 (14:59→19:40)
[2018-07-09] MEDS: HYDROcodone/APAP 5 MG/325 MG (LORTAB) TAB PO PRN (17:15)
[2018-07-09] MEDS: CLINDAMYCIN 600 MG/50 ML IVPB 50 ML IV SCH (21:50)
[2018-07-09] MEDS: metroNIDAZOLE 500MG/100ML IVPB 100 ML IV SCH (21:55)
[2018-07-10] VITALS (7 sets, daily range): BP systolic 136–169; BP diastolic 72–89
[2018-07-10] MEDS: HYDROcodone/APAP 5 MG/325 MG (LORTAB) TAB PO PRN ×3 (00:05→11:51)
--- NOTE | 2018-07-10 00:15 | OPERATIVE REPORT ---
DATE OF SERVICE: 07/09/2018 PREOPERATIVE DIAGNOSES: Partial small-bowel obstruction, epigastric abdominal pain. 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 PROCEDURE: Exploratory laparotomy, lysis of adhesions, small bowel resection. SURGEON: Arron Hodgson DO. VALVER: Dr. Mayer, assisted in retraction, dissection and closure. ANESTHESIA: General. ESTIMATED BLOOD LOSS: Minimal. COMPLICATIONS: None. INDICATIONS: The patient is a 77-year-old female who has had several episodes of partial small-bowel obstruction. She returned yesterday with symptoms of a partial small-bowel obstruction, epigastric abdominal pain. The patient was discussed risks and benefits of procedure and wished to proceed with procedure. Consent was signed on the chart. DESCRIPTION OF PROCEDURE: The patient was taken to the operating suite. She was prepped and draped in sterile fashion. Timeout was performed. A midline incision was made with a #10 blade scalpel. Cautery was used to dissect down the fascia, which was then scored and opened and the abdomen was then entered. At midline, there was a significantly adherent bowel to the abdominal wall with multiple loops of bowel present, which began to be taken down. This is also causing internal hernia from adhesions which were taken down and the small bowel was freed up causing this to improve. There is also a portion of the jejunum at this area that was strictured down. This was inspected and due to the stricture it was decided to resect this portion of bowel. The area distal to this stricture was decompressed, proximal to this area was slightly dilated. The small bowel was then ran from the cecum all the way to ligament of Treitz and from ligament of Treitz back to the cecum without any other pathology noted. At this time, the small bowel was then brought together in a [id number] fashion with an Endo-ANDREW 55 stapler being placed down both limbs at the stricture site, went through the openings created with the cautery. A 55 blue stapler was then fired down the both limbs creating a [id number] anastomosis. A crotch stitch with 3-0 Vicryl was then placed as well. A GI reload was then used to fire across the proximal portion of this area creating a aocx-ng-imqx anastomosis. A 3-0 Vicryl was then used to reinforce the staple line. The anastomosis was widely patent and viable. This was then placed back within the abdomen and the abdomen was irrigated with copious amounts of irrigation and suction. No other pathology noted. The fascia was then closed using 1-0 looped PDS in a running fashion. Skin was then closed using roni. The area was then washed and dried, sterile bandage were applied. The patient tolerated procedure well without complications. She was taken to the recovery room in stable condition. Job ID: [id number] DocumentID: [id number] Dictated Date: 07/09/2018 16:01:52 Wood Lathe Operator Date: 07/10/2018 00:14:26 Dictated By: DO ELE HARPER
[2018-07-10] MEDS: fentaNYL INJECTION 100 MCG/2 ML AMP IVP PRN (03:24)
[2018-07-10] MEDS: LACTATED RINGERS 1,000 ML IV SCH ×2 (03:24→16:30)
[2018-07-10] MEDS: CLINDAMYCIN 600 MG/50 ML IVPB 50 ML IV SCH (05:17)
[2018-07-10] MEDS: metroNIDAZOLE 500MG/100ML IVPB 100 ML IV SCH (05:17)
--- NOTE | 2018-07-10 11:02 | Progress Note-Hospitalist ---
Subjective HPI/CC On Admission Date Seen by Provider: July 10, 2018 Time Seen by Provider: 11:00 CC: SBO HPI: This is a 77yoWF clinic patient of mine who presented to my office for a hospital f/u and reported severe pain and nausea since DC after conservative treatment for the 2nd time for SBO. She has surgery for SBO 4 yrs ago. Patient has lost 10# because she is scared to eat and every time she eats she has stomach pain. Miralax has been maintained every day and her bowels have been moving ok for the little she has been eating. Dr Hodgson will take her to surgery today for exploratory. Subjective/Events-last exam Patient is sore Resolved the adhesions causing the SBO No nausea Dr Mayer updated me on the plan IVF at 100cc/hr Will add Lovenox Will ambulate today Frail status Check labs in am Review of Systems General: Fatigue Gastrointestinal: Abdominal Pain Objective Exam Vital Signs Vital Signs Date Time Temp Pulse Resp B/P (MAP) Pulse Ox O2 Delivery O2 Flow Rate FiO2 07/10/18 08:00 Room Air 07/10/18 07:50 99.2 75 18 166/72 (103) 93 07/09/18 14:30 6 Capillary Refill : General Appearance: No Apparent Distress, WD/WN, Anxious, Chronically ill, Thin HEENT: PERRL/EOMI, Normal ENT Inspection, Pharynx Normal, Moist Mucous Membranes Neck: Full Range of Motion, Normal Inspection, Non Tender Respiratory: Chest Non Tender, Lungs Clear, Normal Breath Sounds, No Accessory Muscle Use, No Respiratory Distress Cardiovascular: Regular Rate, Rhythm, No Edema, No Gallop, No JVD, No Murmur, Normal Peripheral Pulses Gastrointestinal: Normal Bowel Sounds, No Organomegaly, No Pulsatile Mass, Soft, Tenderness Back: Normal Inspection, No CVA Tenderness, No Vertebral Tenderness Extremity: Normal Capillary Refill, Normal Inspection, Normal Range of Motion, Non Tender, No Calf Tenderness, No Pedal Edema Neurologic/Psychiatric: Alert, Oriented x3, No Motor/Sensory Deficits, Normal Mood/Affect Skin: Normal Color, Warm/Dry Lymphatic: No Adenopathy Results/Procedures Lab Patient resulted labs reviewed. 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 s/p exploratory Thursday per Dr Hodgson POD # 1 and removed adhesion causing the obstruction 10 pound weight loss due to scared to eat due to abdominal pain Nausea HTN HLP [place] Plan: Ambulate IVF Lovenox for DVT PPx OOB Check labs in am Diagnosis/Problems Diagnosis/Problems (1) Small bowel obstruction Status: Acute (2) Hypertension Status: Chronic Qualifiers: Hypertension type: essential hypertension Qualified Codes: I10 - Essential (primary) hypertension (3) Presbycusis Status: Chronic Qualifiers: Laterality: bilateral Qualified Codes: H91.13 - Presbycusis, bilateral Clinical Quality Measures DVT/VTE Risk/Contraindication: Risk Factor Score Per Nursin RFS Level Per Nursing on Admit: 2=Moderate CORINA MOTA DO July 10, 2018 11:02
--- NOTE | 2018-07-10 11:35 | Progress Note ---
Subjective Time Seen by a Provider: 09:39 Subjective/Events-last exam Pt seen and examined, states minimal abd pain controlled with meds. No flatus or BM, urinating ok. Review of Systems General: No Chills, No Night Sweats Pulmonary: No Dyspnea, No Cough Cardiovascular: No: Chest Pain, Palpitations Gastrointestinal: No: Nausea, Vomiting Objective Exam Vital Signs Date Time Temp Pulse Resp B/P (MAP) Pulse Ox O2 Delivery O2 Flow Rate FiO2 07/10/18 08:00 Room Air 07/10/18 07:50 99.2 75 18 166/72 (103) 93 Room Air 07/10/18 04:07 97.8 74 18 147/75 (99) 93 Room Air 07/10/18 00:13 98.6 95 18 160/76 (104) 95 Room Air 07/09/18 20:17 Room Air 07/09/18 19:19 98.4 94 18 168/85 (112) 96 Room Air 07/09/18 15:43 96.9 54 20 146/72 (96) 93 Room Air 07/09/18 14:50 98.4 18 93 Room Air 07/09/18 14:40 18 93 Room Air 07/09/18 14:30 18 100 OxyMask 6 07/09/18 14:25 100 OxyMask 3 07/09/18 14:20 18 100 OxyMask 6 07/09/18 14:10 18 100 OxyMask 6 07/09/18 14:00 18 100 OxyMask 6 07/09/18 13:50 98.0 12 99 OxyMask 6 07/09/18 11:57 98.6 71 20 147/71 (96) 96 Room Air I & O 07/10/18 07:00 Intake Total 1560 ml Output Total 1250 ml Balance 310 ml Capillary Refill : General Appearance: No Apparent Distress, WD/WN, Thin HEENT: PERRL/EOMI, Moist Mucous Membranes Respiratory: Chest Non Tender, Lungs Clear, Normal Breath Sounds, No Accessory Muscle Use, No Respiratory Distress Cardiovascular: Regular Rate, Rhythm, No Murmur Gastrointestinal: non tender, soft, distended (mildly compared to yesteday), other (incision c/d/i, there was some serosanguous fluid on bandage when changed but nothing leaking ) Extremity: No Calf Tenderness, No Pedal Edema Neurologic/Psychiatric: Alert, Oriented x3 Results Lab Microbiology 07/08/18 MRSA Screen - Final, Complete MRSA not isolated Assessment/Plan Assessment/Plan Assessment/Plan S/P Exploratory Laparotomy with SBR Start clears, ambulate and use IS. Clinical Quality Measures DVT/VTE Risk/Contraindication: Risk Factor Score Per Nursin RFS Level Per Nursing on Admit: 2=Moderate JOSE DIAZ DO July 10, 2018 11:35
[2018-07-10] MEDS: ENOXAPARIN 40 MG/0.4 ML (LOVENOX) SYR SC SCH (11:51)
--- NOTE | 2018-07-10 12:32 | NUR ---
PATIENT IS UP IN CHAIR WITH LUNCH TRAY. STATES SHE WOULD LIKE TO GET UP AND WALK AROUND THIS AFTERNOON.
--- NOTE | 2018-07-10 15:11 | Anesthesia-General Post-Op ---
General Patient Condition Mental Status/LOC: Same as Preop Cardiovascular: Satisfactory Nausea/Vomiting: Absent Respiratory: Satisfactory Pain: Controlled Complications: Absent Post Op Complications Complications None Follow Up Care/Instructions Patient Instructions None needed. Anesthesia/Patient Condition Patient Condition Patient is doing well, no complaints, stable vital signs, no apparent adverse anesthesia problems. No complications reported per nursing. KOMAL RUTHERFORD CRNA July 10, 2018 15:11
[2018-07-11] MEDS: LACTATED RINGERS 1,000 ML IV SCH ×3 (02:31→20:53)
[2018-07-11 04:33] VITALS: BP 159/84
[2018-07-11 06:06] LABS: BASOPHILS % (AUTO) 0 % (0-10); EOSINOPHILS # (AUTO) 0.1 10^3/uL (0.0-0.3); EOSINOPHILS % (AUTO) 1 % (0-10); HEMATOCRIT 39 % (35-52); LYMPHOCYTES # (AUTO) 1.2 X 10^3 (1.0-4.0); LYMPHOCYTES % (AUTO) 17 % (12-44); MEAN CORPUSCULAR HEMOGLOBIN 31 PG (25-34); MEAN CORPUSCULAR HGB CONC 34 G/DL (32-36); MEAN CORPUSCULAR VOLUME 92 FL (80-99); MEAN PLATELET VOLUME 9.4 FL (7.4-10.4); MONOCYTES # (AUTO) 0.6 X 10^3 (0.0-1.0); MONOCYTES % (AUTO) 9 % (0-12); NEUTROPHILS # (AUTO) 5.1 X 10^3 (1.8-7.8); NEUTROPHILS % (AUTO) 74 % (42-75); PLATELET COUNT 262 10^3/uL (130-400); RED CELL DISTRIBUTION WIDTH 13.5 % (10.0-14.5)
[2018-07-11 06:24] LABS: ALANINE AMINOTRANSFERASE 10 U/L (0-55); ALBUMIN 3.5 GM/DL (3.2-4.5); ALKALINE PHOSPHATASE 71 U/L (40-136); BILIRUBIN,TOTAL 0.4 MG/DL (0.1-1.0); BUN/CREATININE RATIO 10; CARBON DIOXIDE 21 MMOL/L (21-32); CHLORIDE 107 MMOL/L (98-107); CREATININE SERUM 0.67 MG/DL (0.60-1.30); GFR ESTIMATED > 60; GLUCOSE 100 MG/DL (70-105); POTASSIUM 3.7 MMOL/L (3.6-5.0); SODIUM 140 MMOL/L (135-145); TOTAL PROTEIN 5.8 GM/DL (6.4-8.2)
[2018-07-11 08:07] VITALS: BP 169/84
--- NOTE | 2018-07-11 10:50 | Progress Note-Hospitalist ---
Subjective HPI/CC On Admission Date Seen by Provider: July 11, 2018 Time Seen by Provider: 11:00 CC: SBO HPI: This is a 77yoWF clinic patient of mine who presented to my office for a hospital f/u and reported severe pain and nausea since DC after conservative treatment for the 2nd time for SBO. She has surgery for SBO 4 yrs ago. Patient has lost 10# because she is scared to eat and every time she eats she has stomach pain. Miralax has been maintained every day and her bowels have been moving ok for the little she has been eating. Dr Hodgson will take her to surgery today for exploratory. Subjective/Events-last exam Patient doing better Less belly pain + BS Minimal flatus reported Will ambulate in halss today Working on consuming more diet today Review of Systems General: Fatigue Gastrointestinal: Abdominal Pain Objective Exam Vital Signs Vital Signs Date Time Temp Pulse Resp B/P (MAP) Pulse Ox O2 Delivery O2 Flow Rate FiO2 07/11/18 08:07 98.7 86 18 169/84 (112) 95 Room Air 07/09/18 14:30 6 Capillary Refill : General Appearance: No Apparent Distress, WD/WN, Anxious, Chronically ill, Thin HEENT: PERRL/EOMI, Normal ENT Inspection, Pharynx Normal, Moist Mucous Membranes Neck: Full Range of Motion, Normal Inspection, Non Tender Respiratory: Chest Non Tender, Lungs Clear, Normal Breath Sounds, No Accessory Muscle Use, No Respiratory Distress Cardiovascular: Regular Rate, Rhythm, No Edema, No Gallop, No JVD, No Murmur, Normal Peripheral Pulses Gastrointestinal: Normal Bowel Sounds, No Organomegaly, No Pulsatile Mass, Soft, Tenderness Back: Normal Inspection, No CVA Tenderness, No Vertebral Tenderness Extremity: Normal Capillary Refill, Normal Inspection, Normal Range of Motion, Non Tender, No Calf Tenderness, No Pedal Edema Neurologic/Psychiatric: Alert, Oriented x3, No Motor/Sensory Deficits, Normal Mood/Affect Skin: Normal Color, Warm/Dry Lymphatic: No Adenopathy Results/Procedures Lab Laboratory Tests 07/11/18 05:56 Patient resulted labs reviewed. 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 s/p exploratory Thursday per Dr Hodgson POD # 2 and removed adhesion causing the obstruction 10 pound weight loss due to scared to eat due to abdominal pain Nausea HTN HLP [place] Plan: Ambulate IVF Lovenox for DVT PPx OOB Diagnosis/Problems Diagnosis/Problems (1) Small bowel obstruction Status: Acute (2) Hypertension Status: Chronic Qualifiers: Hypertension type: essential hypertension Qualified Codes: I10 - Essential (primary) hypertension (3) Presbycusis Status: Chronic Qualifiers: Laterality: bilateral Qualified Codes: H91.13 - Presbycusis, bilateral Clinical Quality Measures DVT/VTE Risk/Contraindication: Risk Factor Score Per Nursin RFS Level Per Nursing on Admit: 2=Moderate CORINA MOTA DO July 11, 2018 10:50
[2018-07-11] MEDS: ENOXAPARIN 40 MG/0.4 ML (LOVENOX) SYR SC SCH (12:10)
--- NOTE | 2018-07-11 12:28 | Progress Note ---
Subjective Time Seen by a Provider: 11:19 Subjective/Events-last exam Pt seen and examined, minimal abd pain. Denies flatus. Review of Systems General: No Chills, No Night Sweats Pulmonary: No Dyspnea, No Cough Cardiovascular: No: Chest Pain, Palpitations Objective Exam Vital Signs Date Time Temp Pulse Resp B/P (MAP) Pulse Ox O2 Delivery O2 Flow Rate FiO2 07/11/18 08:07 98.7 86 18 169/84 (112) 95 Room Air 07/11/18 08:00 95 Room Air 07/11/18 04:33 97.7 80 16 159/84 (109) 96 Room Air 07/10/18 23:52 98.4 82 18 161/89 (113) 95 Room Air 07/10/18 20:56 Room Air 07/10/18 19:35 98.8 86 18 165/89 (114) 96 Room Air 07/10/18 15:58 98.4 90 16 169/82 (111) 95 Room Air 07/10/18 12:33 99.2 65 18 136/73 (94) 94 Room Air I & O 07/11/18 07:00 Intake Total 1937 ml Output Total 4375 ml Balance -2438 ml Capillary Refill : General Appearance: No Apparent Distress, Thin HEENT: PERRL/EOMI, Moist Mucous Membranes Respiratory: Chest Non Tender, Lungs Clear, Normal Breath Sounds, No Accessory Muscle Use, No Respiratory Distress Cardiovascular: Regular Rate, Rhythm, No Murmur Gastrointestinal: non tender, soft, distended (mild ), other (incision c/d/i ) Results Lab Laboratory Tests 07/11/18 05:56: White Blood Count 7.0, Red Blood Count 4.22L, Hemoglobin 13.0, Hematocrit 39, Mean Corpuscular Volume 92, Mean Corpuscular Hemoglobin 31, Mean Corpuscular Hemoglobin Concent 34, Red Cell Distribution Width 13.5, Platelet Count 262, Mean Platelet Volume 9.4, Neutrophils (%) (Auto) 74, Lymphocytes (%) (Auto) 17, Monocytes (%) (Auto) 9, Eosinophils (%) (Auto) 1, Basophils (%) (Auto) 0, Neutrophils # (Auto) 5.1, Lymphocytes # (Auto) 1.2, Monocytes # (Auto) 0.6, Eosinophils # (Auto) 0.1, Basophils # (Auto) 0.0, Sodium Level 140, Potassium Level 3.7, Chloride Level 107, Carbon Dioxide Level 21, Anion Gap 12, Blood Urea Nitrogen 7, Creatinine 0.67, Estimat Glomerular Filtration Rate > 60, BUN/Creatinine Ratio 10, Glucose Level 100, Calcium Level 9.0, Corrected Calcium 9.4, Total Bilirubin 0.4, Aspartate Amino Transf (AST/SGOT) 14, Alanine Aminotransferase (ALT/SGPT) 10, Alkaline Phosphatase 71, Total Protein 5.8L, Albumin 3.5 Microbiology 07/08/18 MRSA Screen - Final, Complete MRSA not isolated Assessment/Plan Assessment/Plan Assessment/Plan S/P Exploratory Laparotomy with SBR Continue diet and ambulate and use IS. Clinical Quality Measures DVT/VTE Risk/Contraindication: Risk Factor Score Per Nursin RFS Level Per Nursing on Admit: 2=Moderate JOSE DIAZ DO July 11, 2018 12:28
[2018-07-11 15:39] VITALS: BP 146/73
[2018-07-11] MEDS: HYDROcodone/APAP 5 MG/325 MG (LORTAB) TAB PO PRN (17:13)
[2018-07-12 00:22] VITALS: BP 158/74
[2018-07-12] MEDS: LACTATED RINGERS 1,000 ML IV SCH (06:52)
[2018-07-12 08:00] VITALS: BP 145/89
[2018-07-12] MEDS ORDERED: POLYETHYLENE GLYCOL 17 GM (MIRALAX) PACK ONE (09:40)
--- NOTE | 2018-07-12 09:50 | NUR ---
VERBAL ORDER FROM DR MOTA TO GIVE PATIENT ONE TIME DOSE OF MIRALAX NOW
[2018-07-12] MEDS ORDERED: POLY17PO6 PO (10:00)
--- NOTE | 2018-07-12 10:02 | Discharge Summary-Hospitalist ---
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 in need of exploratory today per Dr Hodgson 10 pound weight loss due to scared to eat due to abdominal pain Nausea HTN HLP [place] Plan: Exp lap Clinimix Discharge Diagnosis (1) Small bowel obstruction Status: Resolved (2) Hypertension Status: Chronic (3) Presbycusis Status: Chronic Discharge Summary Discharge Physical Exam Allergies: Coded Allergies: Penicillins (Verified Allergy, Severe, RASH, 06/02/17) Vitals & I&Os Vital Signs Date Time Temp Pulse Resp B/P (MAP) Pulse Ox O2 Delivery O2 Flow Rate FiO2 07/12/18 08:00 95 Room Air 07/12/18 08:00 97.8 99 18 145/89 (107) 07/09/18 14:30 6 General Appearance: No Apparent Distress, WD/WN, Chronically ill Respiratory: Chest Non Tender, Lungs Clear, Normal Breath Sounds, No Accessory Muscle Use, No Respiratory Distress Cardiovascular: Regular Rate, Rhythm, No Edema, No Gallop, No JVD, No Murmur, Normal Peripheral Pulses Gastrointestinal: Normal Bowel Sounds, No Organomegaly, No Pulsatile Mass, Non Tender, Soft Neurologic/Psychiatric: Alert, Oriented x3, No Motor/Sensory Deficits, Normal Mood/Affect Hospital Course Was the Problem List Reviewed?: Yes Hospital course: patient had an uneventful hospital course after admitted for recurrent SBO requiring surgical resolution by DR Hodgson. Patient recovered rapidly and was regaining bowel function at time of DC and pain was controlled with Tylenol. She was given Miralax before DC and she continue that at DC. Patient will have close f/u with me and Dr Hodgson. Labs (last 24 hrs) Microbiology 07/08/18 MRSA Screen - Final, Complete MRSA not isolated Patient resulted labs reviewed. Discussion & Recommendations Discharge Planning: <30 minutes discharge planning Discharge Home Medications: Active Scripts Active Miralax (Polyethylene Glycol 3350) 17 Gm Powd.pack 17 Gm PO DAILY 30 Days Reported Advil (Ibuprofen) 200 Mg Tablet 200 Mg PO Q6H PRN Metoprolol Succinate 50 Mg Tab.er.24h 50 Mg PO DAILY Tylenol Extra Strength (Acetaminophen) 500 Mg Tablet 500 Mg PO Q4H PRN Omeprazole 20 Mg Tablet.dr 20 Mg PO DAILY Co-Enzyme Q10 100 mg Softgel (Ubidecarenone/Vit E/Vit E Mix) 1 Each Capsule 100 Mg PO HS Aspirin EC (Aspirin) 81 Mg Tablet.dr 81 Mg PO HS Pravastatin Sodium 40 Mg Tablet 40 Mg PO HS Losartan Potassium 50 Mg Tablet 50 Mg PO DAILY Instructions to patient/family Please see electronic discharge instructions given to patient. Clinical Quality Measures DVT/VTE Risk/Contraindication: Risk Factor Score Per Nursin RFS Level Per Nursing on Admit: 2=Moderate Problem Qualifiers (1) Hypertension: Hypertension type: essential hypertension Qualified Codes: I10 - Essential (primary) hypertension (2) Presbycusis: Laterality: bilateral Qualified Codes: H91.13 - Presbycusis, bilateral CORINA MOTA DO July 12, 2018 10:02
--- NOTE | 2018-07-12 11:53 | Physical Therapy Evaluation ---
PT Evaluation-General Medical Diagnosis Admission Date July 08, 2018 at 16:00 Medical Diagnosis: weakness Onset Date: July 08, 2018 Therapy Diagnosis Therapy Diagnosis: impaired strength, endurance Height/Weight Height (Feet): 5 Height (Inches): 2.00 Weight (Pounds): 120 Weight (Ounces): 6.0 Precautions Precautions/Isolations: Fall Prevention, Standard Precautions Referral Physician: Estefania Wade DO Reason for Referral: Evaluation/Treatment Medical History Additional Medical History high cholesterol, obstructive bowel, chronic constipation, hiatal hernia, QAGAN TAYAGUNGIN, surg (abd/bowel surg) Current History s/p exploratory laparotomy Prior/Core FIM Prior Level of Function Therapy Code Descriptions/Definitions Functional [place] Measure: 0=Not Assessed/NA 4=Minimal Assistance 1=Total Assistance 5=Supervision or Setup 2=Maximal Assistance 6=Modified [place] 3=Moderate Assistance 7=Complete [place] Therapy Quality Codes: 6 Independent with activity with or without an assistive device 5 Patient requires set up or clean up by helper. Patient completes activity by themselves 4 Supervision or touching assist (CGA). [place] provide cues , steadying assist 3 The helper provides less than half the effort to complete the activity 2 The helper provides more than half the effort to complete the activity 1 Dependent. The helper does all the effort to complete an activity 7 Patient refused to complete or attempt activity 9 The patient did not perform the activity before the current illness or i njury 88 Not attempted due to Medical conditions or safety concerns Functional Abilities and Goals: Independent: Patient completed the activities by him/herself, with or without an assistive device, with no assistance from a helper. Needed Some Help: Patient needed partial assistance from another person to complete activities. Dependent: A helper completed the activities for the patient. Unknown: Not Applicable: Bed Mobility: 7 Transfers (B,C,W/C) (FIM): 7 Gait: 7 Stairs: 7 Indoor Mobility (Ambulation): Independent Stairs: Independent PT Evaluation-Current Subjective Patient in recliner pre tx, agrees to PT, states she has some minor, unrated pain in her abdomen. Patient states that she has been ambulating to the bathroom by herself without any difficulty. Patient is supposed to DC home today. Pt/Family Goals "to be independent at home" Objective Patient Orientation: Person, Place, Situation ROM/Strength ROM Lower Extremities WNL Strength Lower Extremities 4+/5 bilateral lower extremities except for hip flexion which is 3/5 bilaterally Sensory Vision: Functional Hearing: Deaf Sensation Right Lower Extremit: Intact Sensation Left Lower Extremity: Intact Sensation Lower Extremities Patient can understand if she sees persons face when talking and she can hear a little with her hearing aids. Transfers Therapy Code Descriptions/Definitions Functional [place] Measure: 0=Not Assessed/NA 4=Minimal Assistance 1=Total Assistance 5=Supervision or Setup 2=Maximal Assistance 6=Modified [place] 3=Moderate Assistance 7=Complete [place] Transfers (B, C, W/C) (FIM): 7 Sit to/from Stand: 7 Gait Mode of Locomotion: Walk Anticipated Mode of Locomotion: Walk Gait (FIM): 7 Distance: 250' Gait Assistive Device: None Comments/Gait Description Patient is ambulating independently. She has brisk ambulation and no LOB or unsteadiness. Balance Sitting Static: Normal Sitting Dynamic: Normal Standing Static: Normal Standing Dynamic: Good Treatment Patient encouraged to continue to ambulate on her own until DC Assessment/Needs Patient has slight impairments in strength and endurance. She is ambulating on her own. Encouraged her to continue to ambulate on her own while here and will be discharged from PT at this time. Rehab Potential: Good PT Plan Problem List Problem List: Activity Tolerance, Functional Strength Treatment/Plan Treatment Plan: Discontinue PT Treatment Plan: Other Treatment Duration: July 12, 2018 Frequency: Estimated Hrs Per Day: Other Patient and/or Family Agrees t: Yes Safety Risks/Education Patient Education: Gait Training, Transfer Techniques, Correct Positioning, Safety Issues Teaching Recipient: Patient Teaching Methods: Demonstration, Discussion Response to Teaching: Reinforcement Needed Discharge Recommendations Plan DC Time/GCodes Time In: 1135 Time Out: 1145 Total Billed Treatment Time: 10 Total Billed Treatment 1 visit ALONZO ARBOLEDA PT July 12, 2018 11:53
[2018-07-12] MEDS: ENOXAPARIN 40 MG/0.4 ML (LOVENOX) SYR SC SCH (11:59)
[2018-07-12 14:00] VITALS: BP 145/89
--- NOTE | 2018-07-13 08:26 | Progress Note ---
Subjective Date Seen by a Provider: July 12, 2018 Time Seen by a Provider: 11:30 Subjective/Events-last exam Patient seen and examined in chair at bedside with no acute events reported overnight. She has not yet had a bowel movement this morning, however she has been able to pass gas. She states that the abdominal pain from before has improved significantly, with only some incisional pain remaining. She has been able to walk around without assistance, and tolerating PO intake. She denies any CARR, CP, SOB, N/V/D, weakness and dizziness. Objective Exam Vital Signs Date Time Temp Pulse Resp B/P (MAP) Pulse Ox O2 Delivery O2 Flow Rate FiO2 07/12/18 14:00 99 18 145/89 95 Room Air Capillary Refill : Less Than 3 SecondsNONE General Appearance: No Apparent Distress, WD/WN, Chronically ill HEENT: PERRL/EOMI, Moist Mucous Membranes Neck: Non Tender, Supple Respiratory: Chest Non Tender, Lungs Clear, Normal Breath Sounds, No Accessory Muscle Use, No Respiratory Distress Cardiovascular: Regular Rate, Rhythm, No Edema, No Gallop, No JVD, No Murmur, Normal Peripheral Pulses Gastrointestinal: non tender, soft, other (incision c/d/i ) Extremity: Normal Capillary Refill, Non Tender Neurologic/Psychiatric: Alert, Oriented x3, No Motor/Sensory Deficits, Normal Mood/Affect Skin: Normal Color, Warm/Dry Results Lab Microbiology 07/08/18 MRSA Screen - Final, Complete MRSA not isolated Assessment/Plan Assessment/Plan Assessment/Plan S/P Exploratory Laparotomy with SBR Continue diet and ambulate and use IS. Patient is cleared for d/c Follow up outpatient in 2 weeks Clinical Quality Measures DVT/VTE Risk/Contraindication: Risk Factor Score Per Nursin RFS Level Per Nursing on Admit: 2=Moderate RAMAN ADKINS DO July 13, 2018 08:26
== END 2018-07-12 14:00 | disposition home or self-care (01) | DRG 331 ==
LOC: 4TH 16:00 → UNDOADMOB 16:00 → 4TH 16:00 → EDSTATUS 07-09 11:45 → UNDODISOB 07-12 14:00
PROVIDERS: ADMIT Internal Medicine; ATTEND Internal Medicine
PROC: 0DN80ZZ Release Small Intestine, Open Approach (ICD-10-PCS; 2018-07-09)
PROC: 0DBA0ZZ Excision of Jejunum, Open Approach (ICD-10-PCS; principal; 2018-07-09 12:36)
DX: K46.0 Unspecified abdominal hernia with obstruction, without gangrene (principal); E78.5 Hyperlipidemia, unspecified; I10 Essential (primary) hypertension; K44.9 Diaphragmatic hernia without obstruction or gangrene; H91.13 Presbycusis, bilateral
CPT/HCPCS: 36415; 74018; 80053; 81000; 82150; 83690; 85025; 85027; 87081